=== PATIENT | male | born 1940 | race Caucasian/White ===

== ENCOUNTER → 2016-12-23 | Outpatient (REF) | payer OTHER ==
[~2016-12-23] MED LIST: ASPI81TA7 PO; CALCTAB65 PO; CARV3.12 PO; KEPP500T6 PO; LASI20TA PO; LISI-542 PO; LOSA25TA8 PO; MELA10CA PO; METO-207 PO; NORV5TAB PO; PANT40TA2 PO; POTA20TA PO; PRAV1TAB39 PO; PRAV20TA2 PO; SERT-138 PO; SERT50TA PO; SPIR25TA2 PO; TYLE500T78 PO; VITA-193 PO
[2016-12-23 20:51] LABS: ALBUMIN 3.9 GM/DL (3.2-5.2); ALBUMIN/GLOBULIN RATIO 1.03 (1.00-1.93); BILIRUBIN,TOTAL 0.4 MG/DL (0.2-1.0); CALCIUM LEVEL 8.7 MG/DL (8.8-10.2); CREATININE FOR GFR 1.55 MG/DL (0.70-1.30); GLOMERULAR FILTRATION RATE 46.4 (>42); MAGNESIUM LEVEL 2.4 MG/DL (1.8-2.4); POTASSIUM SERUM 5.1 MEQ/L (3.5-5.1); TOTAL PROTEIN 7.7 GM/DL (6.4-8.2)
== END ==
LOC: M LABDRWAD 10:16
PROVIDERS: ATTEND Internal Medicine Cardiovascular Disease
DX: I47.2 Ventricular tachycardia (principal)

== ENCOUNTER → 2017-01-25 | Outpatient (CLI) | payer OTHER ==
--- NOTE | 2017-01-25 14:43 | REP ---
CT Head without contrast HISTORY: Thrombosis COMPARISON: 12/26/2015 Areas of decreased attenuation are present in the periventricular white matter. This represents small-vessel ischemic disease. There is no intraparenchymal hemorrhage, acute infarct, mass or midline shift. The ventricular system and cortical sulci as well as subarachnoid space in the posterior fossa are dilated consistent with mild volume loss. There is no extra cerebral collection. There is no fracture. [place] holes are present in the frontal bones. The visualized sinuses are clear. IMPRESSION: 1. Small vessel ischemic disease. 2. Mild volume loss. Signed by Itz Marx MD 01/25/2017 02:35 P
== END ==
LOC: M RAD 14:09
PROVIDERS: ATTEND Neurological Surgery
DX: I82.91 Chronic embolism and thrombosis of unspecified vein (principal)

== ENCOUNTER → 2017-02-25 | Outpatient (CLI) | payer OTHER ==
[~2017-02-25] VITALS: Ht 188 cm; Wt 104.3 kg
[~2017-02-25] MED LIST changes: +AMIO200T PO; +ASPI1TAB15 PO; -ASPI81TA7 PO; +ELIQ5TAB PO; +KEPP1TAB PO; -KEPP500T6 PO; +MAGN500C2 PO; -METO-207 PO; +METO1TAB7 PO; +NITR4TASL SL; +NS 1,000 ML IV SCH; +PROPOFOL 200 MG/20 ML VIAL As Ordered ONE
--- NOTE | 2017-02-25 09:55 | ROOR ---
Patient Name: Giorgio Awad Procedure Date: 02/25/2017 8:54 AM Date of : 1940 Age: 76 Room: [facility] Gender: Male Note Status: Finalized Procedure: Colonoscopy Indications: High risk colon cancer surveillance: Personal history of colonic polyps, Last colonoscopy: April 2012 Providers: Haider LE MD Referring MD: Wyatt Sun MD Requesting Provider: Medicines: Monitored Anesthesia Care Complications: No immediate complications. Procedure: Pre-Anesthesia Assessment: - The heart rate, respiratory rate, oxygen saturations, blood pressure, adequacy of pulmonary ventilation, and response to care were monitored throughout the procedure. The Colonoscope was introduced through the anus and advanced to the cecum, identified by appendiceal orifice and ileocecal valve. The colonoscopy was performed without difficulty. The patient tolerated the procedure well. The quality of the bowel preparation was good. Findings: The perianal and digital rectal examinations were normal. Three sessile polyps were found in the hepatic flexure and ascending colon. The polyps were diminutive in size. These polyps were removed with a cold snare. Resection and retrieval were complete. The exam was otherwise without abnormality on direct and retroflexion views. Impression: - Three diminutive polyps at the hepatic flexure and in the ascending colon, removed with a cold snare. Resected and retrieved. - The examination was otherwise normal on direct and retroflexion views. - Moderate internal hemorrhoids. Recommendation: - Telephone endoscopist for pathology results in 2 weeks. - If the pathology report reveals adenomatous tissue, then repeat the colonoscopy for surveillance in 3 - 5 years. - Resume Eliquis (apixaban) at prior dose today. Haider Le MD Haider LE MD 02/25/2017 9:55:16 AM This report has been signed electronically. Number of Addenda: 0 Note Initiated On: 02/25/2017 8:54 AM Estimated Blood Loss: Estimated blood loss: none.
[2017-02-25 10:15] VITALS: BP 143/74
== END | disposition home or self-care (01) ==
LOC: M OPP 07:39
PROVIDERS: ATTEND Internal Medicine Gastroenterology
DX: Z12.11 Encounter for screening for malignant neoplasm of colon (principal); D12.2 Benign neoplasm of ascending colon; D12.3 Benign neoplasm of transverse colon; Z86.010 Personal history of colon polyps; K64.8 Other hemorrhoids; I48.91 Unspecified atrial fibrillation; Z95.5 Presence of coronary angioplasty implant and graft; R00.8 Other abnormalities of heart beat; I25.10 Atherosclerotic heart disease of native coronary artery without angina pectoris; I25.2 Old myocardial infarction; I50.9 Heart failure, unspecified; Z95.810 Presence of automatic (implantable) cardiac defibrillator; I11.0 Hypertensive heart disease with heart failure; E78.5 Hyperlipidemia, unspecified; I34.9 Nonrheumatic mitral valve disorder, unspecified; K76.0 Fatty (change of) liver, not elsewhere classified; R12 Heartburn; R56.9 Unspecified convulsions; N52.9 Male erectile dysfunction, unspecified; N18.3 Chronic kidney disease, stage 3 (moderate); N40.1 Benign prostatic hyperplasia with lower urinary tract symptoms; Z87.828 Personal history of other (healed) physical injury and trauma; Z86.79 Personal history of other diseases of the circulatory system; Z87.891 Personal history of nicotine dependence; Z88.5 Allergy status to narcotic agent; Z79.82 Long term (current) use of aspirin; Z79.899 Other long term (current) drug therapy; Z79.01 Long term (current) use of anticoagulants; Z80.8 Family history of malignant neoplasm of other organs or systems

== ENCOUNTER → 2017-05-26 | Outpatient (REF) | payer OTHER ==
[~2017-05-26] MED LIST changes: -NS 1,000 ML IV SCH; -PROPOFOL 200 MG/20 ML VIAL As Ordered ONE
[2017-05-26 20:45] LABS: MEAN CORPUSCULAR HEMOGLOBIN 30.7 pg (27.0-33.0); MEAN CORPUSCULAR HGB CONC 31.9 g/dl (32.0-36.5); MEAN CORPUSCULAR VOLUME 96.1 fl (80.0-96.0); RED CELL DISTRIBUTION WIDTH 14.5 % (11.5-14.5)
[2017-05-26 21:03] LABS: ALBUMIN 3.7 GM/DL (3.2-5.2); ALBUMIN/GLOBULIN RATIO 1.06 (1.00-1.93); ALKALINE PHOSPHATASE 80 U/L (45-117); ALT/SGPT 50 U/L (12-78); ANION GAP 8 MEQ/L (8-16); AST/SGOT 32 U/L (15-37); BILIRUBIN,TOTAL 0.3 MG/DL (0.2-1.0); BLOOD UREA NITROGEN 24 MG/DL (7-18); CALCIUM LEVEL 8.9 MG/DL (8.8-10.2); CARBON DIOXIDE LEVEL 27 MEQ/L (21-32); CHLORIDE LEVEL 103 MEQ/L (98-107); CHOLESTEROL LEVEL 185 MG/DL (<200); CREATININE FOR GFR 1.23 MG/DL (0.70-1.30); GLOMERULAR FILTRATION RATE > 60.0 (>42); GLUCOSE, FASTING 100 MG/DL (83-110); MAGNESIUM LEVEL 2.2 MG/DL (1.8-2.4); POTASSIUM SERUM 4.9 MEQ/L (3.5-5.1); SODIUM LEVEL 138 MEQ/L (136-145); TOTAL PROTEIN 7.2 GM/DL (6.4-8.2); TRIGLYCERIDES LEVEL 564 MG/DL (<150)
== END ==
LOC: M LAB REF 10:24
PROVIDERS: ATTEND Internal Medicine Cardiovascular Disease
DX: I50.42 Chronic combined systolic (congestive) and diastolic (congestive) heart failure (principal); I48.0 Paroxysmal atrial fibrillation; I25.10 Atherosclerotic heart disease of native coronary artery without angina pectoris

== ENCOUNTER 2017-05-27 09:22 | Day surgery (SDC) | payer OTHER ==
[~2017-05-27] VITALS: Ht 190.5 cm; Wt 106.6 kg
[~2017-05-27 09:22] MED LIST changes: +MIDAZOLAM INJ 2 MG/2 ML VIAL (J2250) As Ordered ONE; +fentaNYL 100 MCG/2 ML INJECTION (J3010) As Ordered ONE
[2017-05-27] MEDS ORDERED: LR 1,000 ML IV SCH (09:30)
[2017-05-27] MEDS ORDERED: PROPARACAINE 0.5% OPHTH SOL 15ML OS ONE (10:00)
[2017-05-27] MEDS ORDERED: TROPICAMIDE 1% OPHTH SOLN 2ML OS ONE (10:00)
[2017-05-27] MEDS ORDERED: PHENYLEPHRINE 2.5% OPHTH SOL 2ML OS ONE (10:00)
[2017-05-27] MEDS ORDERED: OFLOXACIN 0.3 % (OCUFLOX) OPTH SOL 5ML OS ONE (10:00)
[2017-05-27] MEDS ORDERED: BALANCED SALT IRRIGATION SOLUTION 500ML BAG (FOR OR EYE MACHINE) As Ordered ONE (10:25)
[2017-05-27] MEDS ORDERED: POVIDONE-IODINE 5% OPHTH PREP SOL 30ML As Ordered ONE (10:25)
[2017-05-27] MEDS ORDERED: ACETYLCHOLINE OPHTH SOLN 1% 2ML (MIOCHOL-E) As Ordered ONE (10:25)
[2017-05-27] MEDS ORDERED: CEFUROXIME 1MG/0.1ML INTRACAMERAL INJ As Ordered ONE ×2 (10:26→10:35)
[2017-05-27] MEDS ORDERED: LIDOCAINE 0.75%/EPINEPHRINE 0.025% IN BSS 1ML SYR INTRACAMERAL (OR ONLY) As Ordered ONE (10:26)
[2017-05-27] MEDS ORDERED: DUOVISC (0.50ML VISCOAT/0.55ML PROVISC) OPHTH KIT As Ordered ONE (10:26)
[2017-05-27] MEDS ORDERED: TETRACAINE 0.5% OPHTH SOLN 4ML As Ordered ONE (10:26)
[2017-05-27 11:50] VITALS: BP 124/73
--- NOTE | 2017-05-27 19:57 | RO ---
DATE OF PROCEDURE: 05/27/2017 PREOPERATIVE DIAGNOSIS: Visually significant nuclear sclerotic cataract left eye. POSTOPERATIVE DIAGNOSIS: Visually significant nuclear sclerotic cataract left eye. PROCEDURE: Cataract extraction with use of phacoemulsification and placement of intraocular lens, AU00T0, 16.5 Diopter, left eye. SURGEON: Evin Garsia DO SAUSAGE COOKER: ANESTHESIA: Local with monitored anesthesia care (MAC). COMPLICATIONS: None. POSTOPERATIVE CONDITION: Stable. INDICATION FOR SURGERY: Blurred vision left eye affecting patient's activities of daily living. DESCRIPTION OF PROCEDURE: The patient was seen in the preoperative area and properly identified. The correct operative eye was identified and marked. Attention was turned to that eye. The patient received topical antibiotics in the preoperative area. The patient then received topical dilating drops consisting of tropicamide and phenylephrine. The patient was then transferred to the operating room. The correct side was re-identified. The patient received topical anesthetics and antibiotics on the surface of the eye. The eye was prepped and draped in a sterile fashion. The upper and lower eyelids were isolated with Tegaderm tape, and the lids were held open with an adjustable speculum. Using a sideport blade, a paracentesis incision was made. Intraocular preservative-free lidocaine was then injected into the anterior chamber. Viscoelastic was then injected into the anterior chamber through the paracentesis. Using a 2.4 mm sharp-tipped keratome, the anterior chamber was entered via a temporal clear corneal incision. A continuous curvilinear capsulorrhexis was created with the aid of a 26-gauge cystotome and Utrata forceps. Hydrodissection was performed with balanced salt solution (BSS) on a blunt cannula until the nucleus was freely mobile. The crystalline lens was phacoemulsified and aspirated. Additional cohesive viscoelastic was placed into the capsular bag to deepen it. An AU00T0 16.5 Diopter lens was placed into the capsular bag and confirmed by visualizing the continuous curvilinear capsulorrhexis. Additional irrigation and aspiration was used to remove cortical material and remaining viscoelastic. The clear corneal incision was hydrated with BSS on a blunt cannula. The lens was well positioned. The incisions were then tested for leaks and found to be negative. The eye was then palpated for appropriate pressure and adjusted accordingly with BSS. The eyelid speculum was carefully removed. The patient tolerated the procedure well and was discharged to the recovery unit in a stable condition. MTDD
== END 2017-05-27 12:15 | disposition home or self-care (01) ==
LOC: M SDC 09:22
PROVIDERS: ATTEND Ophthalmology
DX: H25.12 Age-related nuclear cataract, left eye (principal); I48.91 Unspecified atrial fibrillation; Z98.61 Coronary angioplasty status; I25.10 Atherosclerotic heart disease of native coronary artery without angina pectoris; I25.2 Old myocardial infarction; Z79.02 Long term (current) use of antithrombotics/antiplatelets; I10 Essential (primary) hypertension; E78.5 Hyperlipidemia, unspecified; Z95.0 Presence of cardiac pacemaker; Z95.810 Presence of automatic (implantable) cardiac defibrillator; Z79.899 Other long term (current) drug therapy; K21.9 Gastro-esophageal reflux disease without esophagitis; F41.9 Anxiety disorder, unspecified; Z88.5 Allergy status to narcotic agent
CPT/HCPCS: 66984; J2250; J3010; V2632

== ENCOUNTER → 2017-07-05 | Outpatient (CLI) | payer OTHER ==
[~2017-07-05] MED LIST changes: -MIDAZOLAM INJ 2 MG/2 ML VIAL (J2250) As Ordered ONE; -fentaNYL 100 MCG/2 ML INJECTION (J3010) As Ordered ONE
--- NOTE | 2017-07-05 10:51 | REP ---
Clinical: Cough. Technique: PA and lateral. Comparison: 05/02/2016. Findings: Mediastinum and cardiac silhouette are stable. Pacemaker in satisfactory position. Lung nicholson demonstrate chronic interstitial changes without acute consolidation, effusion, or pneumothorax. Skeletal structures are intact. Impression: Chronic stable changes. No acute cardiopulmonary process. Signed by Armen Garcia MD 07/05/2017 10:42 A
== END ==
LOC: M ADAMS 10:12
PROVIDERS: ATTEND Family Medicine
DX: R05 Cough (principal); J98.4 Other disorders of lung
CPT/HCPCS: 71020; G0463

== ENCOUNTER → 2017-07-13 | Outpatient (REF) | payer OTHER ==
[2017-07-14 19:51] LABS: MEAN CORPUSCULAR HGB CONC 31.5 g/dl (32.0-36.5); MEAN CORPUSCULAR VOLUME 95.3 fl (80.0-96.0); PLATELET COUNT, AUTOMATED 265 10^3/uL (150-450); RED CELL DISTRIBUTION WIDTH 14.4 % (11.5-14.5); WHITE BLOOD COUNT 6.5 10^3/uL (4.0-10.0)
[2017-07-14 20:18] LABS: ALBUMIN 3.8 GM/DL (3.2-5.2); BILIRUBIN,TOTAL 0.7 MG/DL (0.2-1.0); CALCIUM LEVEL 8.8 MG/DL (8.8-10.2); CREATININE FOR GFR 1.46 MG/DL (0.70-1.30); GLOMERULAR FILTRATION RATE 49.6 (>42); TOTAL PROTEIN 7.6 GM/DL (6.4-8.2)
== END ==
LOC: M SFHCADAM 09:49
PROVIDERS: ATTEND Family Medicine
DX: N18.3 Chronic kidney disease, stage 3 (moderate) (principal); I25.10 Atherosclerotic heart disease of native coronary artery without angina pectoris; E78.5 Hyperlipidemia, unspecified; E74.9 Disorder of carbohydrate metabolism, unspecified; I11.9 Hypertensive heart disease without heart failure; I48.0 Paroxysmal atrial fibrillation; Z79.899 Other long term (current) drug therapy

== ENCOUNTER → 2017-07-21 | Outpatient (CLI) | payer OTHER ==
--- NOTE | 2017-07-21 09:08 | REP ---
NONCONTRAST CHEST CT: CLINICAL: Chronic cough. COMPARISON: 04/13/2016. FINDINGS: The bilateral lung nicholson are well aerated and essentially clear. Minimal chronic appearing interstitial changes are appreciated along with few small pneumatoceles measuring up to approximately 1.5 cm. No acute consolidation, significant nodule or mass lesion. Tracheobronchial tree is patent. No pleural effusion or pneumothorax. Mediastinum demonstrates atherosclerotic changes of the thoracic aorta and coronary artery without aortic aneurysm. No cardiomegaly or pericardial effusion is appreciated. Dual lead pacemaker identified in right atrium and ventricle. No adenopathy. Surrounding musculoskeletal structures demonstrate age related changes without focal osseous abnormality. Limited upper abdomen demonstrates normal bilateral adrenal glands and evidence for prior cholecystectomy. IMPRESSION: Minimal scattered chronic changes. No acute or significant mediastinal or pleuroparenchymal process. Signed by Armen Garcia MD 07/23/2017 08:43 A
== END ==
LOC: M RAD 06:59
PROVIDERS: ATTEND Family Medicine
DX: R05 Cough (principal)

== ENCOUNTER → 2017-08-07 | Outpatient (CLI) | payer OTHER ==
--- NOTE | 2017-08-07 13:59 | REP ---
Clinical: History of subdural hematoma. Comparison: 01/25/2017. Findings: Current examination demonstrates a small subdural hematoma along the left lateral convexity measuring 6.7 mm maximal width (images 14 - 22). Evidence for prior bilateral svetlana holes. Underlying atrophy and microvascular ischemic changes are appreciated without evidence for further acute intracranial hemorrhage or mass/mass effect. The ventricles are symmetric. Mild to moderate mucosal thickening to the sinuses suggests chronic sinus disease. Impression: Small subdural hematoma along the left lateral convexity. Signed by Armen Garcia MD 08/07/2017 01:51 P
== END ==
LOC: M RAD 09:51
DX: I62.00 Nontraumatic subdural hemorrhage, unspecified (principal); R29.6 Repeated falls

== ENCOUNTER → 2018-01-04 | Outpatient (CLI) | payer OTHER | LOC: M RAD 10:43 | DX: S06.5X0D Traumatic subdural hemorrhage without loss of consciousness, subsequent encounter (principal); I73.9 Peripheral vascular disease, unspecified; I47.2 Ventricular tachycardia | CPT/HCPCS: 71046 ==

== ENCOUNTER → 2018-01-04 | Outpatient (CLI) | payer OTHER | LOC: M RAD 11:05 | DX: I47.2 Ventricular tachycardia (principal) ==

== ENCOUNTER → 2018-02-11 | Outpatient (REF) | payer OTHER ==
[2018-02-11 12:42] LABS: HEMATOCRIT 45.1 % (42.0-52.0); HEMOGLOBIN 14.5 g/dl (13.5-17.5); MEAN CORPUSCULAR HEMOGLOBIN 29.8 pg (27.0-33.0); MEAN CORPUSCULAR HGB CONC 32.2 g/dl (32.0-36.5); MEAN CORPUSCULAR VOLUME 92.6 fl (80.0-96.0); PLATELET COUNT, AUTOMATED 268 10^3/uL (150-450); RED BLOOD COUNT 4.87 10^6/uL (4.30-6.10); RED CELL DISTRIBUTION WIDTH 14.3 % (11.5-14.5)
[2018-02-11 12:59] LABS: ALBUMIN 3.6 GM/DL (3.2-5.2); ALBUMIN/GLOBULIN RATIO 0.97 (1.00-1.93); ALKALINE PHOSPHATASE 83 U/L (45-117); ALT/SGPT 29 U/L (12-78); ANION GAP 10 MEQ/L (8-16); AST/SGOT 18 U/L (7-37); BILIRUBIN,TOTAL 0.5 MG/DL (0.2-1.0); BLOOD UREA NITROGEN 21 MG/DL (7-18); CALCIUM LEVEL 8.8 MG/DL (8.8-10.2); CARBON DIOXIDE LEVEL 23 MEQ/L (21-32); CHLORIDE LEVEL 110 MEQ/L (98-107); CHOLESTEROL LEVEL 188 MG/DL (<200); CHOLESTEROL RISK RATIO 8.545 (<5); CREATININE FOR GFR 1.53 MG/DL (0.70-1.30); GLUCOSE, FASTING 111 MG/DL (70-100); HDL CHOLESTEROL 22 MG/DL (>40); LDL CHOLESTEROL 95.4 MG/DL (<100); NON-HDL-C 166 MG/DL; POTASSIUM SERUM 4.5 MEQ/L (3.5-5.1); SODIUM LEVEL 143 MEQ/L (136-145); TOTAL PROTEIN 7.3 GM/DL (6.4-8.2); TRIGLYCERIDES LEVEL 353 MG/DL (<150)
[2018-02-11 13:00] LABS: TOTAL 25(OH) VITAMIN D 22.5 NG/ML (30.0-100.0)
[2018-02-11 13:40] LABS: ESTIMATED AVERAGE GLUCOSE 123 MG/DL (60-110); HEMOGLOBIN A1c 5.9 %
== END ==
LOC: M SFHCADAM 10:00
DX: I50.20 Unspecified systolic (congestive) heart failure (principal); I25.10 Atherosclerotic heart disease of native coronary artery without angina pectoris; I13.0 Hypertensive heart and chronic kidney disease with heart failure and stage 1 through stage 4 chronic kidney disease, or unspecified chronic kidney disease; E74.9 Disorder of carbohydrate metabolism, unspecified; N18.3 Chronic kidney disease, stage 3 (moderate)
CPT/HCPCS: 83735

== ENCOUNTER → 2018-02-27 | Outpatient (REF) | payer OTHER ==
[2018-03-01 14:48] LABS: FATS NEUTRAL Normal (.); FATS TOTAL Normal (.)
== END ==
LOC: M LAB REF 12:02
DX: R19.7 Diarrhea, unspecified (principal)
CPT/HCPCS: 82705

== ENCOUNTER → 2018-05-24 | Outpatient (CLI) | payer OTHER | LOC: M RAD 06:51 | DX: R26.81 Unsteadiness on feet (principal); R51 Headache | CPT/HCPCS: 70450 ==

== ENCOUNTER → 2018-06-20 | Outpatient (CLI) | payer OTHER | LOC: M RAD 14:52 | DX: M51.26 Other intervertebral disc displacement, lumbar region (principal); M48.061 Spinal stenosis, lumbar region without neurogenic claudication; R53.1 Weakness | CPT/HCPCS: 72131 ==

== ENCOUNTER → 2018-07-20 | Outpatient (REF) | payer OTHER ==
[2018-07-20 15:40] LABS: BASO # 0.1 10^3/uL (0.0-0.2); BASO % 0.7 % (0.0-1.0); EOS # 0.2 10^3/uL (0.0-0.50); EOS % 2.4 % (0.0-3.0); HEMATOCRIT 45.2 % (42.0-52.0); HEMOGLOBIN 14.6 g/dl (13.5-17.5); IMMATURE GRANULOCYTE # 0.1 10^3/uL (0-0); IMMATURE GRANULOCYTE % 0.9 % (0-3.0); LYMPH # 1.6 10^3/uL (1.5-4.5); LYMPH % 18.9 % (24.0-44.0); MEAN CORPUSCULAR HEMOGLOBIN 30.6 pg (27.0-33.0); MEAN CORPUSCULAR HGB CONC 32.3 g/dl (32.0-36.5); MEAN CORPUSCULAR VOLUME 94.8 fl (80.0-96.0); MONO # 0.6 10^3/uL (0.0-0.8); MONO % 6.8 % (0.0-5.0); NEUTROPHILS # 5.8 10^3/uL (1.8-7.7); NEUTROPHILS % 70.3 % (36.0-66.0); PLATELET COUNT, AUTOMATED 254 10^3/uL (150-450); RED BLOOD COUNT 4.77 10^6/uL (4.30-6.10); RED CELL DISTRIBUTION WIDTH 14.6 % (11.5-14.5); WHITE BLOOD COUNT 8.2 10^3/uL (4.0-10.0)
[2018-07-20 15:42] LABS: APPEARANCE, URINE CLEAR (CLEAR); BACTERIA, URINE AUTO 1+ (NEGATIVE); BILIRUBIN, URINE AUTO NEGATIVE (NEGATIVE); BLOOD, URINE BLOOD NEGATIVE (NEGATIVE); COLOR, URINE YELLOW (YELLOW); GLUCOSE, URINE (UA) AUTO NEGATIVE (NEGATIVE); KETONE, URINE AUTO NEGATIVE (NEGATIVE); LEUKOCYTE ESTERASE, URINE AUTO 2+ (NEGATIVE); MUCUS, URINE SMALL (NEGATIVE); NITRITE, URINE AUTO NEGATIVE (NEGATIVE); PROTEIN, URINE AUTO NEGATIVE (NEGATIVE); RBC, URINE AUTO 0 /HPF (0-3); SPECIFIC GRAVITY URINE AUTO 1.017 (1.002-1.035); SQUAMOUS EPITHELIAL CELL UR AU 0 /HPF (0-6); UROBILINOGEN, URINE AUTO 0.2 mg/dL (0.0-2.0); WBC, URINE AUTO 24 /HPF (0-3)
[2018-07-20 15:56] LABS: ALBUMIN 3.6 GM/DL (3.2-5.2); ALBUMIN/GLOBULIN RATIO 0.95 (1.00-1.93); ALKALINE PHOSPHATASE 102 U/L (45-117); ALT/SGPT 33 U/L (12-78); ANION GAP 9 MEQ/L (8-16); AST/SGOT 20 U/L (7-37); BILIRUBIN,TOTAL 0.4 MG/DL (0.2-1.0); BLOOD UREA NITROGEN 21 MG/DL (7-18); CALCIUM LEVEL 8.6 MG/DL (8.8-10.2); CARBON DIOXIDE LEVEL 26 MEQ/L (21-32); CHLORIDE LEVEL 105 MEQ/L (98-107); CREATININE FOR GFR 1.32 MG/DL (0.70-1.30); GLOMERULAR FILTRATION RATE 55.6 (>35); GLUCOSE, FASTING 121 MG/DL (70-100); MAGNESIUM LEVEL 2.1 MG/DL (1.8-2.4); POTASSIUM SERUM 4.3 MEQ/L (3.5-5.1); SODIUM LEVEL 140 MEQ/L (136-145); TOTAL PROTEIN 7.4 GM/DL (6.4-8.2)
== END ==
LOC: M SHH 13:58
DX: I47.2 Ventricular tachycardia (principal); I49.5 Sick sinus syndrome
CPT/HCPCS: 83735

== ENCOUNTER → 2018-10-14 | Outpatient (REF) | payer MEDICARE ==
[~2018-10-14] MED LIST changes: +KLOR20TA42 PO; -LASI20TA PO; +LASI20TA3 PO; +LOSA25TA14 PO; -LOSA25TA8 PO; -PANT40TA2 PO; +PANT40TA3 PO; -POTA20TA PO; +SPIR-10 PO; -SPIR25TA2 PO
[2018-10-14 19:45] LABS: ALBUMIN 3.9 GM/DL (3.2-5.2); CALCIUM LEVEL 8.7 MG/DL (8.8-10.2); CREATININE FOR GFR 1.5 MG/DL (0.70-1.30); GLOMERULAR FILTRATION RATE 47.9 (>35); MAGNESIUM LEVEL 2.1 MG/DL (1.8-2.4); PHOSPHORUS LEVEL 2.8 MG/DL (2.5-4.9); POTASSIUM SERUM 4.5 MEQ/L (3.5-5.1); THYROID STIMULATING HORMONE 3.7 uIU/ML (0.358-3.740)
== END ==
LOC: M LABDRWAD 18:56
PROVIDERS: ATTEND Family Medicine
DX: I47.2 Ventricular tachycardia (principal); T46.2X5A Adverse effect of other antidysrhythmic drugs, initial encounter

== ENCOUNTER → 2018-10-17 | Outpatient (REF) | payer MEDICARE | LOC: M LABDRWAD 19:14 | PROVIDERS: ATTEND Internal Medicine Cardiovascular Disease | DX: I50.43 Acute on chronic combined systolic (congestive) and diastolic (congestive) heart failure (principal) ==

== ENCOUNTER → 2018-10-19 | Outpatient (CLI) | payer MEDICARE ==
--- NOTE | 2018-10-19 16:10 | REP ---
CT brain without contrast: History: Traumatic subdural hematoma. Comparison study May 24, 2018. January 04, 2018 prior study is also reviewed. CT findings: Preliminary digital funeral home attendant radiograph and bone window settings demonstrate bilateral frontal bone svetlana hole defects. Bony calvarium is otherwise intact. There are mild mucosal changes in the ethmoid and sphenoid sinuses bilaterally. Vascular calcifications noted in the distal vertebral and distal carotid arteries as before. There is diffuse moderate cerebral atrophy. There is no evidence of subdural hematoma or other intracranial hemorrhage. No subdural hygroma is seen. There is no evidence of infarct, mass, midline shift. Mild small vessel changes are noted. Impression: Diffuse atrophy, vascular calcification, and prior bilateral frontal bone svetlana holes. No acute intracranial lesion. Electronically Signed by Prabhjot Mittal MD 10/19/2018 05:15 P
--- NOTE | 2018-10-19 16:18 | REP ---
CT lumbar spine without contrast: History: Traumatic subdural hematoma, low back pain. Comparison CT lumbar spine study June 20, 2018. CT findings: There is no evidence of bony destructive lesion or interval collapse. Degenerative spondylosis changes are again noted. Advanced vascular calcification is noted. No other significant extra vertebral abnormality is noted. At L5-S1, there is moderate osteoarthritic facet hypertrophy and sclerosis bilaterally. The disc is mildly narrowed. No disc herniation is seen. At L4-5, there is advanced facet osteoarthritis bilaterally. Degenerative disc changes are noted. There is a 2 mm L4-5 spondylolisthesis, grade 1, unchanged from prior study. Diffuse disc bulging is present. There is moderate central canal stenosis at L4-5 due to developmentally short pedicles, disc bulging, facet and ligamentum flavum hypertrophy, and the degenerative spondylolisthesis. This is unchanged. The thecal sac is quite compressed. At L3-L4, there is also moderate central canal stenosis but less prominent than at L4-5. There is diffuse disc bulging. Mild facet and ligamentum flavum hypertrophy is present. Developmentally short pedicles. At L2-3, there is mild central canal stenosis again noted due to disc bulging, ligamentum flavum hypertrophy and minimal facet hypertrophy. These changes are stable from the prior study. At L1-2, there is minimal disc bulging. Impression: Degenerative spondylosis changes. The dominant abnormality is L4-5 where there is moderate to severe central canal stenosis. The findings are unchanged from the June 20, 2018 prior study. Electronically Signed by Prabhjot Mittal MD 10/19/2018 05:15 P
== END ==
LOC: M RAD 15:14
PROVIDERS: ATTEND Physician Assistant Medical
DX: M51.26 Other intervertebral disc displacement, lumbar region (principal); M47.26 Other spondylosis with radiculopathy, lumbar region; R29.6 Repeated falls; G31.84 Mild cognitive impairment of uncertain or unknown etiology; M51.36 Other intervertebral disc degeneration, lumbar region; M48.061 Spinal stenosis, lumbar region without neurogenic claudication; I67.2 Cerebral atherosclerosis; I65.23 Occlusion and stenosis of bilateral carotid arteries

== ENCOUNTER → 2018-10-31 | Outpatient (REF) | payer MEDICARE ==
[2018-10-31 14:16] LABS: ALBUMIN 3.8 GM/DL (3.2-5.2); CALCIUM LEVEL 9.3 MG/DL (8.8-10.2); CREATININE FOR GFR 1.48 MG/DL (0.70-1.30); GLOMERULAR FILTRATION RATE 48.7 (>35); MAGNESIUM LEVEL 2.3 MG/DL (1.8-2.4); PHOSPHORUS LEVEL 3.2 MG/DL (2.5-4.9); POTASSIUM SERUM 4.7 MEQ/L (3.5-5.1)
== END ==
LOC: M LABDRWAD 13:24
PROVIDERS: ATTEND Internal Medicine Cardiovascular Disease
DX: I50.43 Acute on chronic combined systolic (congestive) and diastolic (congestive) heart failure (principal)

== ENCOUNTER → 2019-01-30 | Outpatient (CLI) | payer MEDICARE ==
[~2019-01-30] MED LIST changes: +SERT-141 PO; -SERT50TA PO
[2019-01-30 13:20] LABS: BASO # 0.1 10^3/uL (0.0-0.2); BASO % 0.7 % (0.0-1.0); EOS # 0.3 10^3/uL (0.0-0.50); EOS % 3.7 % (0.0-3.0); HEMATOCRIT 47.9 % (42.0-52.0); HEMOGLOBIN 15.3 g/dl (13.5-17.5); LYMPH # 1.8 10^3/uL (1.5-4.5); LYMPH % 20.7 % (24.0-44.0); MEAN CORPUSCULAR HEMOGLOBIN 29.9 pg (27.0-33.0); MEAN CORPUSCULAR HGB CONC 31.9 g/dl (32.0-36.5); MEAN CORPUSCULAR VOLUME 93.6 fl (80.0-96.0); MONO # 0.4 10^3/uL (0.0-0.8); MONO % 5.1 % (0.0-5.0); NEUTROPHILS % 69.1 % (36.0-66.0); PLATELET COUNT, AUTOMATED 310 10^3/uL (150-450); RED BLOOD COUNT 5.12 10^6/uL (4.30-6.10); WHITE BLOOD COUNT 8.7 10^3/uL (4.0-10.0)
[2019-01-30 13:36] LABS: ALBUMIN 3.8 GM/DL (3.2-5.2); BILIRUBIN,TOTAL 0.4 MG/DL (0.2-1.0); CALCIUM LEVEL 9.2 MG/DL (8.8-10.2); CREATININE FOR GFR 1.58 MG/DL (0.70-1.30); GLOMERULAR FILTRATION RATE 45.1 (>35); POTASSIUM SERUM 4.5 MEQ/L (3.5-5.1); THYROID STIMULATING HORMONE 5.48 uIU/ML (0.358-3.740); TOTAL PROTEIN 7.7 GM/DL (6.4-8.2)
== END ==
LOC: M ADAMS 10:00
PROVIDERS: ATTEND Internal Medicine Cardiovascular Disease
DX: I48.0 Paroxysmal atrial fibrillation (principal); I34.0 Nonrheumatic mitral (valve) insufficiency; I50.42 Chronic combined systolic (congestive) and diastolic (congestive) heart failure; I11.0 Hypertensive heart disease with heart failure; I25.10 Atherosclerotic heart disease of native coronary artery without angina pectoris

== ENCOUNTER → 2019-02-03 | Outpatient (CLI) | payer MEDICARE ==
--- NOTE | 2019-02-03 08:14 | REP ---
BRAIN CT WITHOUT CONTRAST: HISTORY: Mild cognitive impairment. Comparison head CT study October 19, 2018 and May 24, 2018. CT FINDINGS: The preliminary digital contract lead radiograph and axial bone window images demonstrate that the patient is status post bilateral frontal svetlana hole placement. No other calvarial defect is seen. There is mucosal thickening mild in degree affecting the ethmoid and frontal sinuses. Vascular calcifications again noted in the distal vertebral and distal carotid arteries bilaterally. On soft tissue window settings, there is diffuse moderate cerebral atrophy volume loss. This is unchanged. Small vessel changes are noted in the periventricular white matter. There is a small focus of old encephalomalacia in the left occipital lobe consistent with an old infarct. This is unchanged from October 19, 2018 although appears to be new from June 04, 2018. Today's study shows no acute infarct. There is no evidence of intracranial hemorrhage. No extra-axial fluid collection is seen. No mass or midline shift is observed. IMPRESSION: Diffuse atrophy, small vessel changes, vascular calcification. 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 No acute intracranial abnormality. Prior bilateral frontal bone svetlana holes. Minimal mucosal thickening in the ethmoid and frontal sinuses. Electronically Signed by Prabhjot Mittal MD 02/03/2019 08:17 A
--- NOTE | 2019-02-03 08:27 | REP ---
CT LUMBAR SPINE WITHOUT CONTRAST: HISTORY: Low back pain. Comparison lumbar spine CT study October 19, 2018. FINDINGS: There is minimal old wedging of the L1 vertebral body with partial collapse of the superior endplate unchanged from comparison studies. Lumbar vertebral body heights are otherwise preserved. Degenerative spondylosis changes are again noted. There is a 2-3 mm L4-5 degenerative spondylolisthesis. Alignment is otherwise normal. This is unchanged. There is no evidence of spondylolysis. Osteoarthritic facet changes are again noted at L5-S1 bilaterally. No neural foraminal narrowing is seen. At L4-5, today's study again demonstrates moderate to severe central canal stenosis due to diffuse disc bulging, developmentally short pedicles, ligamentum flavum and facet hypertrophy. This finding is unchanged from the November 02, 2018 study. There is no bony neural foraminal narrowing. At L3-4, degenerative disc narrowing is seen with small vacuum phenomenon. There is diffuse disc bulging. There is moderate central canal stenosis at L3-4 as well. There is mild ligamentum flavum and facet hypertrophy. These findings are stable. L2-3 , mild central canal stenosis is again noted due to diffuse disc bulging. There is slight ligamentum flavum hypertrophy. No change from comparison study. L1-2, there is mild diffuse disc bulging. No other abnormality. IMPRESSION: Degenerative spondylosis changes. Moderate to severe central canal stenosis at L4-5 with stable grade 1 spondylolisthesis. Mild to moderate central canal stenosis at L3-4 and L2-3. Findings unchanged from October 16, 2018 prior study. Electronically Signed by Prabhjot Mittal MD 02/03/2019 08:41 A
== END ==
LOC: M RAD 07:12
PROVIDERS: ATTEND Physician Assistant Medical
DX: G31.84 Mild cognitive impairment of uncertain or unknown etiology (principal); R51 Headache; S06.5X0D Traumatic subdural hemorrhage without loss of consciousness, subsequent encounter; X58.XXXD Exposure to other specified factors, subsequent encounter; M54.5 Low back pain; M48.062 Spinal stenosis, lumbar region with neurogenic claudication; M47.26 Other spondylosis with radiculopathy, lumbar region

== ENCOUNTER → 2019-03-13 | Outpatient (CLI) | payer MEDICARE ==
[2019-03-13 12:59] LABS: COLLAGEN EPINEPHRINE 115 SECONDS (74-162)
== END ==
LOC: M LAB 11:26
PROVIDERS: ATTEND Ophthalmology
DX: H02.122 Mechanical ectropion of right lower eyelid (principal); H10.45 Other chronic allergic conjunctivitis

== ENCOUNTER → 2019-03-23 | Outpatient (REF) | payer MEDICARE ==
[~2019-03-23] MED LIST changes: +CYAN500T9 PO; -VITA-193 PO
[2019-03-23 20:22] LABS: FREE T4 0.98 NG/DL (0.76-1.46); THYROID STIMULATING HORMONE 3.31 uIU/ML (0.358-3.740)
== END ==
LOC: M SFHCADAM 11:26
PROVIDERS: ATTEND Family Medicine
DX: E03.9 Hypothyroidism, unspecified (principal)

== ENCOUNTER 2019-05-15 10:17 | Inpatient (IN) | payer MEDICARE ==
[~2019-05-15] VITALS: Ht 190.5 cm; Wt 112.3 kg
[2019-05-15] MEDS ORDERED: LEVO25TA5 PO (10:40)
[2019-05-15] MEDS ORDERED: ROSU10TA6 PO (10:40)
[2019-05-15] MEDS ORDERED: ENTR1TAB PO (10:40)
[2019-05-15 11:27] LABS: BASO # 0.1 10^3/uL (0.0-0.2); BASO % 0.3 % (0.0-1.0); HEMATOCRIT 55.2 % (42.0-52.0); HEMOGLOBIN 18.3 g/dl (13.5-17.5); LYMPH # 1.5 10^3/uL (1.5-5.0); MEAN CORPUSCULAR HEMOGLOBIN 30.8 pg (27.0-33.0); MEAN CORPUSCULAR HGB CONC 33.2 g/dl (32.0-36.5); MEAN CORPUSCULAR VOLUME 92.8 fl (80.0-96.0); MONO # 0.9 10^3/uL (0.0-0.8); MONO % 4.9 % (0.0-5.0); NEUTROPHILS # 15.6 10^3/uL (1.5-8.5); NEUTROPHILS % 86.3 % (36.0-66.0); PLATELET COUNT, AUTOMATED 328 10^3/uL (150-450); RED BLOOD COUNT 5.95 10^6/uL (4.30-6.10); WHITE BLOOD COUNT 18.1 10^3/uL (4.0-10.0)
[2019-05-15] MEDS ORDERED: ACET500T15 PO (11:28)
[2019-05-15] MEDS ORDERED: POTA10TA14 PO (11:29)
[2019-05-15] MEDS ORDERED: D31000CA4 PO (11:30)
[2019-05-15] MEDS ORDERED: VITA-144 PO (11:33)
--- NOTE | 2019-05-15 11:54 | REP ---
CT brain without contrast: History: Altered mental status. Comparison CT study February 03, 2019. CT findings: Digital department of natural [employer] officer views and bone window settings demonstrate bilateral frontal bone svetlana holes as on prior study. No other bony calvarial defect is seen. Vascular calcification is again noted in the distal vertebral and carotid arteries. There is minimal mucosal thickening in the frontal and ethmoid sinuses and in the right sphenoid sinus. There is moderate generalized atrophy. There is no evidence of intracranial hemorrhage. No extra-axial fluid collection, mass or midline shift is seen. No evidence of acute cortical infarction seen. There is a small old left occipital lobe cortical infarction again seen unchanged. Impression: Moderate generalized atrophy and vascular calcification. Prior bilateral frontal bone svetlana holes. No acute intracranial abnormality. Electronically Signed by Prabhjot Mittal MD 05/15/2019 12:08 P
[2019-05-15 11:58] LABS: ALBUMIN 3.6 GM/DL (3.2-5.2); BILIRUBIN,DIRECT 0.3 MG/DL (0.0-0.2); BILIRUBIN,TOTAL 1.1 MG/DL (0.2-1.0); CK-MB VALUE MASS 4.7 NG/ML (<3.6); MB/CK RELATIVE INDEX 2.25 (< OR =4); TOTAL PROTEIN 7.6 GM/DL (6.4-8.2); TROPONIN I 0.08 NG/ML (< 0.10)
--- NOTE | 2019-05-15 12:06 | REP ---
Portable chest x-ray: Two views. History: Shortness of breath. Comparison chest x-ray: Jan 04 2018. Findings: EKG monitoring electrodes overlie the chest. Heart is not enlarged. A dual lead pacemaker is seen in the right heart via the left side as before. The lungs are symmetrically aerated and clear. Pulmonary vasculature is not increased. No pleural effusion is seen. Impression: Pacemaker in place. Otherwise no acute disease. Electronically Signed by Prabhjot Mittal MD 05/15/2019 11:58 A
[2019-05-15] MEDS ORDERED: NS 1,000 ML IV SCH (12:30)
[2019-05-15] MEDS ORDERED: cefTRIAXone SOD 2 GM in D5W MINI-BAG PLUS 50 ML IV ONE (12:30)
[2019-05-15 12:38] LABS: INR 1.26; PROTHROMBIN TIME 15.5 SECONDS (11.8-14.0)
[2019-05-15 12:39] LABS: PARTIAL THROMBOPLASTIN TIME 38.1 SECONDS (25.0-38.4)
[2019-05-15] MEDS ORDERED: LIDOCAINE 2% 5ML JELLY UROJET TOP ONE (12:45)
[2019-05-15] MEDS ORDERED: IPRATROPIUM 0.5MG/ALBUTEROL 2.5MG INH SOL UD 3ML (DUONEB)(J7620) NEB PRN (16:00)
--- NOTE | 2019-05-15 16:20 | HPEPDOC ---
General Date of Admission 05/15/19 Date of Service: May 15, 2019 Primary Care Physician: Wyatt Sun MD Attending Physician: SIVA KIRK MD Chief Complaint The patient is a 78-year-old male admitted with a reason for visit of Miguel Arellano. Source: Patient, Family, RN/MD Exam Limitations: No limitations Timing/Duration: Day(s) Severity: Moderate (liters) Associated Symptoms: Shortness of breath, Other (. Altered mental status) History of Present Illness 78 years old white male with past medical history of coronary artery disease, congestive heart failure, sick sinus syndrome, status post AICD and permanent pacemaker placement secondary to emergency room by EMS and as per his . I he is altered mental status, not eating or drinking and not sleeping. Also complaining of shortness of breath and generalized tiredness and fatigue getting worse since last 3 days. No nausea, vomiting or diarrhea. When I asked patient, he denies any complaints at the present time, but he is awake, alert, but not appropriate and not oriented to time and place Home Medications Scheduled Acetaminophen (Acetaminophen) 500 Mg Tablet, 500 MG PO DAILY, (Reported) Amiodarone HCl (Amiodarone HCl) 200 Mg Tab, 200 MG PO DAILY, (Reported) Apixaban (Eliquis) 5 Mg Tab, 5 MG PO BID, (Reported) Aspirin (Aspirin EC) 81 Mg Tab, 81 MG PO DAILY, (Reported) Cholecalciferol (Vitamin D3) (Vitamin D3) 1,000 Unit Tablet, 1,000 UNIT PO DAILY, (Reported) Cyanocobalamin (Vitamin B-12) (Vitamin B-12) 500 Mcg Tab, 1,000 MCG PO DAILY, (Reported) Levothyroxine Sodium (Levothyroxine Sodium) 25 Mcg Tablet, 25 MCG PO DAILY, (Reported) Melatonin (Melatonin) 10 Mg Cap, 10 MG PO QHS, (Reported) Metoprolol Succinate (Metoprolol Succinate) 50 Mg Tab, 50 MG PO DAILY, (Reported) Pantoprazole Sodium (Pantoprazole Sodium) 40 Mg Tab, 40 MG PO DAILY, (Reported) Potassium Chloride (Potassium Chloride) 10 Meq Tablet.er, 10 MEQ PO BID, (Reported) Rosuvastatin Calcium (Rosuvastatin Calcium) 10 Mg Tablet, 10 MG PO QHS, (Reported) Sacubitril/Valsartan (Entresto 24 mg-26 mg Tablet) 1 Each Tablet, 24 MG PO QHS, (Reported) Sertraline HCl (Sertraline HCl) 100 Mg Tab, 150 MG PO DAILY, (Reported) Allergies Coded Allergies: morphine (Verified Allergy, Severe, highly agiatated, 05/15/19) Past Medical History Medical History CAD, congestive heart failure, sick sinus syndrome status post pacemaker and AICD, hyperlipidemia, depression, BPH, lumbar radiculopathy status post laminectomy, GERD, erectile dysfunction, osteoarthritis, hypertension, asthma, history of subdural hemorrhage. 2015 Surgical History Right eye extraction, tonsillectomy and adenectomy, appendectomy, bone graft from right hip. The right humerus, ERCP with sphincterectomy. Laparoscopic cholecystectomy. She ablation, AICD pacemaker 2014 cardiac cath 2014 L3-L4 laminectomy Family History Significant Family History: Other (. Father of heart failure at age of 74. Mother had a history of rheumatoid arthritis) Social History * Smoker: former Smoker Alcohol: Denies Drugs: denies A-FIB/CHADSVASC A-FIB History Current/History of A-Fib/PAF?: No Review of Systems Constitutional: Reports: Fatigue Eyes: Denies: Pain, Vision change, Conjunctivae inflammation, Eyelid inflammation, Redness, Other ENT: Denies: Head Aches, Ear Pain, Dysphagia, Sinus Congestion, Post Nasal Drip, Sore Throat, Epistaxis, Other Symptoms Skin: Denies: Rash, Lesions, Jaundice, Bruising, Itching, Dry, Breakdown, Nail Changes, Other Pulmonary: Reports: Dyspnea; Denies: Cough, Pleuritic Chest Pain, Other Symptoms Cardiovascular: Denies: Chest Pain, Palpitations, Orthopnea, Paroxysmal Noc. Dyspnea, Edema, Lt Headedness, Other Symptoms Gastrointestinal: Denies: Nausea, Vomiting, Abdominal Pain, Diarrhea, Constipation, Melena, Hematochezia, Other Symptoms Hematologic: Denies: Bruising, Bleeding Excessively, Petecchia, Purpura, Enlarged Lymph Nodes, Other Hematologic Endocrine: Denies: Polydipsia, Polyphagia, Polyuria, Heat Intolerance, Cold Intolerance, Other Endocrine Sx Musculoskeletal: Denies: Neck Pain, Back Pain, Shoulder Pain, Arm Pain, Hand Pain, Leg Pain, Foot Pain, Joint Pain, Muscle Pain, Spasms, Other Symptoms Neurological: Reports: Confusion Psych: Denies: Mood Normal, Anxiety, Depression, Memory Issues, Thoughts of Self Harm, Anger, Thoughts of Harming Other, Other Psych Physical Examination General Exam: Positive: Alert, Cooperative, Other (, oriented 1) Eye Exam: Positive: PERRLA, Conjunctiva & lids normal ENT Exam: Positive: Mucous membr. moist/pink Neck Exam: Positive: Supple Chest Exam: Positive: Clear to auscultation, Normal air movement Heart Exam: Positive: Rate Normal, Normal S1, Normal S2 Telemetry: Positive: Tachycardia Abdomen Exam: Positive: Normal bowel sounds, Soft Extremity Exam: Positive: Normal pulses Skin Exam: Positive: Nl turgor and temperature Neuro Exam: Positive: Strength at 5/5 X4 ext, Sensation Intact Vital Signs Vital Signs Date Time Temp Pulse Resp B/P (MAP) Pulse Ox O2 Delivery O2 Flow Rate FiO2 05/15/19 12:02 99 96 05/15/19 12:00 132/67 (88) 05/15/19 10:30 Room Air 05/15/19 10:18 97.1 24 Laboratory Data Labs 24H Laboratory Tests 2 05/15/19 11:11: Immature Granulocyte % (Auto) 0.5, White Blood Count 18.1H, Red Blood Count 5.95, Hemoglobin 18.3H, Hematocrit 55.2H, Mean Corpuscular Volume 92.8, Mean Corpuscular Hemoglobin 30.8, Mean Corpuscular Hemoglobin Concent 33.2, Red Cell Distribution Width 14.6H, Platelet Count 328, Neutrophils (%) (Auto) 86.3H, Lymphocytes (%) (Auto) 8.0L, Monocytes (%) (Auto) 4.9, Eosinophils (%) (Auto) 0.0, Basophils (%) (Auto) 0.3, Neutrophils # (Auto) 15.6H, Lymphocytes # (Auto) 1.5, Monocytes # (Auto) 0.9H, Eosinophils # (Auto) 0.0, Basophils # (Auto) 0.1, Nucleated Red Blood Cells % (auto) 0.0, Aspartate Amino Transf (AST/SGOT) 40H, Alanine Aminotransferase (ALT/SGPT) 53, Alkaline Phosphatase 99, Total Bilirubin 1.1H, Direct Bilirubin 0.3H, Ammonia 18, Total Creatine Kinase 209, Creatine Kinase MB 4.7H, Creatine Kinase MB Relative Index 2.25, Troponin I 0.08, Total Protein 7.6, Albumin 3.6, Albumin/Globulin Ratio 0.90L, Amylase Level 16L, Lipase 159 05/15/19 11:19: POC Glucose (Misc Panel) 149H, POC Sodium (Misc Panel) 141, POC Potassium (Misc Panel) 3.8, POC Chloride (Misc Panel) 106, POC Total CO2 (Misc Panel) 22.0L, POC Blood Urea Nitrogen (Misc Panel 42H, POC Ionized Calcium (Misc Panel) 4.1L, POC Creatinine (Misc Panel) 1.8H, POC Hematocrit (Misc Panel) 56.0H 05/15/19 12:06: Prothrombin Time 15.5H, Prothromb Time International Ratio 1.26, Activated Partial Thromboplast Time 38.1 05/15/19 12:13: Lactic Acid Level 2.2*H 05/15/19 12:18: Magnesium Level 2.5H 05/15/19 14:26: Urine Color YELLOW, Urine Appearance HAZY, Urine pH 5.0, Urine Specific [place] 1.026, Urine Protein 1+H, Urine Glucose (UA) NEGATIVE, Urine Ketones TRACEH, Urine Blood 2+H, Urine Nitrite NEGATIVE, Urine Bilirubin NEGATIVE, Urine Urobilinogen 0.2, Urine Leukocyte Esterase NEGATIVE, Urine WBC (Auto) 1, Urine RBC (Auto) 41H, Urine Hyaline Casts (Auto) 3, Urine Bacteria (Auto) NEGATIVE, Urine Squamous Epithelial Cells 0, Urine Calcium Oxalate Cryst (Auto) SMALL, Urine Mucus (Auto) SMALL, Urine Sperm (Auto) CBC/BMP Laboratory Tests 05/15/19 11:11 Red Blood Count 5.95, Mean Corpuscular Volume 92.8, Mean Corpuscular Hemoglobin 30.8, Mean Corpuscular Hemoglobin Concent 33.2, Red Cell Distribution Width 14.6 H, Neutrophils (%) (Auto) 86.3 H, Lymphocytes (%) (Auto) 8.0 L, Monocytes (%) (Auto) 4.9, Eosinophils (%) (Auto) 0.0, Basophils (%) (Auto) 0.3, Neutrophils # (Auto) 15.6 H, Lymphocytes # (Auto) 1.5, Monocytes # (Auto) 0.9 H, Eosinophils # (Auto) 0.0, Basophils # (Auto) 0.1 Microbiology Microbiology 05/15/19 Blood Culture, Received Pending 05/15/19 Blood Culture, Received Pending Problems (1) Sepsis Status: Acute Problem Text: 78 years old white male accompanied by his who complains of worsening mental status since last 3 days, not eating or drinking and also shortness of breath but no fever is being admitted to the hospital with diagnosis of sepsis of unknown etiology Chest x-ray is negative Abdominal CT as per Dr. Galeano essentially BC count is 18,000 Lactic acid on admission 2.2 and repeat is 2.5 Electrolytes and H&H are normal BUN is 42, creatinine 1.8 Patient is also tachycardic, hence qualifies the diagnosis of sepsis by SIRS criteria I will start patient on broad-spectrum antibiotics such as Zosyn and vancomycin until the final diagnosis is made IV fluids normal saline 100 mL per hour with close monitoring not to fluid overload him Once the patient is hydrated enough, then a repeat chest x-ray can be obtained to rule out pneumonia Respiratory panel was ordered but is still pending Blood cultures and urine culture also has been ordered which are pending DVT prophylaxis, patient is already on anticoagulation with apaxiban Regular diet Patient is a wheelchair-bound, hence a bed rest with bedside commode with assistance Continue home meds (2) HTN (hypertension) Status: Chronic Problem Text: Under control Continue home meds (3) Hyperlipemia Status: Chronic Problem Specific Plan: Repeat Labs Problem Text: Continue home meds (4) Sick sinus syndrome Status: Chronic Problem Text: Status post AICD and pacemaker placement On library monitor for secondary tachycardia Continue home meds including beta blockers Plan / VTE VTE Prophylaxis Ordered?: Yes SIVA KIRK MD May 15, 2019 16:20
[2019-05-15] MEDS ORDERED: PIPERACILLIN/TAZOBACTAM SOD 3.375 GM in D5W MINI-BAG PLUS 50 ML IV ONE (16:45)
--- NOTE | 2019-05-15 16:51 | REP ---
CT abdomen and pelvis without IV contrast: History: Abdomen pain. Generalized abdomen pain. The patient reports history of previous cholecystectomy and appendectomy. Findings: Preliminary digital survey statistician radiograph demonstrates clips in the right upper quadrant and a pacemaker in the heart. The lung bases show no evidence of infiltrate or effusion. The liver and the spleen are normal in size homogeneous in texture. No adrenal lesion is seen. There is a descending duodenal diverticulum. There is mild edema around the pancreatic head with no evidence of mass or fluid collection. Question pancreatitis. There is a cortical cyst anteriorly in the lower pole left kidney measuring 2.8 cm in diameter. There is no evidence of hydronephrosis or renal calculus. No retroperitoneal mass or adenopathy is observed. Vascular calcification is noted in the aorta and its branches. No retroperitoneal mass or adenopathy is observed. The prostate is mildly enlarged and contains one or two dystrophic calcifications. Urinary bladder is unremarkable. No pelvic mass or adenopathy is observed. Small and large bowel loops are unremarkable. No abdominal wall defect is observed. Bone window settings show degenerative spondylosis changes in the lumbar spine. Impression: Question mild pancreatitis changes with edema around the pancreatic head. Descending duodenal diverticulum. Post cholecystectomy and appendectomy. Left renal cyst. Otherwise negative. Electronically Signed by Prabhjot Mittal MD 05/16/2019 09:32 A
[2019-05-15] MEDS: NS 1,000 ML IV SCH (17:00)
[2019-05-15 18:10] VITALS: BP 123/81
[2019-05-15] MEDS: SERTRALINE HCL 50 MG TAB PO SCH (18:25)
[2019-05-15] MEDS: PANTOPRAZOLE 40MG TAB (PROTONIX) PO SCH (18:26)
[2019-05-15] MEDS: ASPIRIN 81 MG ENTERIC TAB PO SCH (18:26)
[2019-05-15] MEDS: METOPROLOL SUCC (TopROL XL) 50MG **XL** TAB PO SCH (18:26)
[2019-05-15] MEDS: VITAMIN D 1,000 INTERNATIONAL UNITS TABLET PO SCH (18:26)
[2019-05-15] MEDS: CYANOCOBALAMIN 500 MCG TAB PO SCH (18:26)
[2019-05-15] MEDS: AMIODARONE 200 MG TAB (PACERONE) PO SCH (18:26)
[2019-05-15] MEDS: ENTRESTO 24-26MG TABLET (SACUBITRIL/VALSARTAN) PO SCH (19:37)
[2019-05-15] MEDS: ROSUVASTATIN 10 MG TAB (CRESTOR) PO SCH (19:38)
[2019-05-15] MEDS: POTASSIUM CHLORIDE 10 MEQ SR TABLET PO SCH (19:38)
[2019-05-15] MEDS: APIXABAN 2.5 MG TAB (ELIQUIS) PO SCH (19:38)
[2019-05-15] MEDS: VANCOMYCIN HCL 1,000 MG, VIAL MATE ADAPTER 1 EACH in D5W 250 ML IV SCH ×2 (19:57→21:13)
[2019-05-15 19:58] VITALS: BP 156/94
[2019-05-15 20:34] LABS: CALCIUM LEVEL 8.7 MG/DL (8.8-10.2); CREATININE FOR GFR 1.5 MG/DL (0.70-1.30); GLOMERULAR FILTRATION RATE 47.9 (>35); POTASSIUM SERUM 3.3 MEQ/L (3.5-5.1); TROPONIN I 0.08 NG/ML (< 0.10)
--- NOTE | 2019-05-15 20:58 | ECGEPIP ---
[facility] - ED Test Date: 2019-05-15 Pat Name: CHELSEA MCBRIDE Department: Room: - Gender: Male Private Pilot: POLLY : 1940 Requested By: Lizet Rutherford Order Number: [id number] Reading MD: Lizet Rutherford Measurements Intervals [place] Rate: 104 P: 237 MD: 205 QRS: -64 QRSD: 120 T: 129 QT: 381 QTc: 502 Interpretive Statements ELECTRONIC ATRIAL PACEMAKER ELECTRONIC VENTRICULAR PACEMAKER ABNORMAL RHYTHM ECG Electronically Signed on 05-15-2019 20:58:12 EDT by Lizet Rutherford
--- NOTE | 2019-05-15 21:10 | PHACANCOPD ---
PHARMACY VANCOMYCIN DOSING Pt Demographics Demographics Patient Age:78 , Weight:98.900 , Gender: male Adjusted Body Weight Date: 05/15/19, Adjusted Body Weight: [90] Kg Events Past 24 Hours Events Past 24 Hours: NO: Dialysis, Diuretic Therapy, Change in CrCl, Fever, Elevation in WBC, Pending Diagnostics, Pending Procedures, Other Vancomycin Vancomycin indication: SEVERE SEPSIS, PNEUMONIA Vancomycin Target Ranges: 15-20 mcg/ml Vancomycin Load Y/N: Yes Load Dose Date Time Vancomycin Load Dose: 2g Date: 05/15/19 Time: 20:00 Vancomycin Dose Date: 05/15/19. Current Vancomycin Dose: [1g iv q24h] Intermittent Dosing?: No Labs Labs Item Value Date Time White Blood Count 18.1 10^3/uL H 05/15/19 1111 Creatinine 1.50 MG/DL H 05/15/19 2000 Micro Microbiology 05/15/19 Respiratory Virus Panel (PCR) (ISABELL) - Final, Complete 05/15/19 Blood Culture, Received Pending 05/15/19 Blood Culture, Received Pending Creatinine Clearance Date:05/15/19. Creatinine Clearance: [46.9ml/min]. Pending Labs mrsa pcr Assessment and Plan Maintaining Current Dose?: Yes Reason for dose change: No Dose Change Pharmacist Note Pharmacist Note Date: 05/15/19. Pharmacist note:Pt is an 78 year old male being treated for severe sepsis and pneumonia goal trough 15-20mcg/ml. The patient has not been treated with vancomycin here at [facility] in the past. To achieve goal a loading dose of 2g was started 05/15/19 @ 20:00. Maintenance therapy will consist of 1g IV every 24 hours. We will continue to monitor and adjust the dose as needed. KASEY DOBSON PHARMACY May 15, 2019 21:10
[2019-05-15] MEDS ORDERED: POTASSIUM CHLORIDE 10 MEQ SR TABLET PO ONE (22:00)
[2019-05-15] MEDS ORDERED: ONDANSETRON 4MG/2ML VIAL (J2405) IV ONE (22:30)
[2019-05-15 23:59] VITALS: BP 133/68
[2019-05-16] MEDS: PIPERACILLIN/TAZOBACTAM SOD 3.375 GM in D5W MINI-BAG PLUS 50 ML IV SCH ×5 (00:58→23:43)
[2019-05-16] MEDS: NS 1,000 ML IV SCH ×2 (00:59→12:30)
[2019-05-16 04:00] VITALS: BP 143/68
[2019-05-16] MEDS: LEVOTHYROXINE 25MCG TABLET (0.025MG) PO SCH (06:18)
[2019-05-16 06:31] LABS: HEMATOCRIT 47.9 % (42.0-52.0); MEAN CORPUSCULAR HEMOGLOBIN 30.3 pg (27.0-33.0); MEAN CORPUSCULAR HGB CONC 32.8 g/dl (32.0-36.5); MEAN CORPUSCULAR VOLUME 92.3 fl (80.0-96.0); PLATELET COUNT, AUTOMATED 313 10^3/uL (150-450); RED BLOOD COUNT 5.19 10^6/uL (4.30-6.10); WHITE BLOOD COUNT 19.4 10^3/uL (4.0-10.0)
[2019-05-16 06:34] LABS: HEMOGLOBIN 15.7 g/dl (13.5-17.5)
[2019-05-16 07:15] LABS: ALBUMIN 2.7 GM/DL (3.2-5.2); CALCIUM LEVEL 8.4 MG/DL (8.8-10.2); CREATININE FOR GFR 1.4 MG/DL (0.70-1.30); GLOMERULAR FILTRATION RATE 51.9 (>35); MAGNESIUM LEVEL 2.1 MG/DL (1.8-2.4); POTASSIUM SERUM 3.7 MEQ/L (3.5-5.1); TOTAL PROTEIN 6.6 GM/DL (6.4-8.2)
[2019-05-16] MEDS: VITAMIN D 1,000 INTERNATIONAL UNITS TABLET PO SCH (07:42)
[2019-05-16] MEDS: PANTOPRAZOLE 40MG TAB (PROTONIX) PO SCH (07:43)
[2019-05-16] MEDS: APIXABAN 2.5 MG TAB (ELIQUIS) PO SCH ×2 (07:43→20:10)
[2019-05-16] MEDS: CYANOCOBALAMIN 500 MCG TAB PO SCH (07:43)
[2019-05-16] MEDS: SERTRALINE HCL 50 MG TAB PO SCH (07:43)
[2019-05-16] MEDS: POTASSIUM CHLORIDE 10 MEQ SR TABLET PO SCH ×2 (07:43→20:10)
[2019-05-16] MEDS: ASPIRIN 81 MG ENTERIC TAB PO SCH (07:43)
[2019-05-16] MEDS: METOPROLOL SUCC (TopROL XL) 50MG **XL** TAB PO SCH (07:44)
[2019-05-16] MEDS: AMIODARONE 200 MG TAB (PACERONE) PO SCH (07:44)
[2019-05-16 08:00] VITALS: BP 147/85
--- NOTE | 2019-05-16 08:32 | IPNPDOC ---
Subjective Date Seen The patient was seen on 05/16/19. Subjective Chief Complaint/HPI MS changes, SOB Events since last encounter Admitted overnight. Given IVF and started on Zosyn IV. Patient's mentation has slowly improved per documentation. Patient complaining of regurgitation/nausea for several days. Answers are vague in response. Spoke with patient's son who advised patient has been ill since early April. del started with a URI and son, who is a PA, treated with doxycycline for presumed pneumonia. Son states patient has really not improved since the URI. Patient developed diarrhea pos abx which improved with cutting out dairy. 3 days ago patient started with nausea and developed vomiting yesterday which prompted to bring him into ED. CT abd/pelvis shows questionable pancreatitis. General: Reports: ROS Unobtainable Gastrointestinal: Reports: Nausea, Other Symptoms (regurgitation) Objective Physical Examination General Exam: Positive: Alert, Cooperative, Other (, oriented 1) Eye Exam: Positive: PERRLA, Conjunctiva & lids normal ENT Exam: Positive: Mucous membr. moist/pink Neck Exam: Positive: Supple Chest Exam: Positive: Clear to auscultation, Normal air movement Heart Exam: Positive: Rate Normal, Normal S1, Normal S2 Telemetry: Positive: Tachycardia Abdomen Exam: Positive: Normal bowel sounds, Soft; Negative: Tenderness Extremity Exam: Positive: Normal pulses Skin Exam: Positive: Nl turgor and temperature Neuro Exam: Positive: Strength at 5/5 X4 ext, Sensation Intact Assessment /Plan Problems (1) Pancreatitis Status: Acute Problem Text: Amylase, lipase pending. will keep NPO. Continue IVF. (2) Sepsis Status: Acute Problem Text: repeat CXR today. WBC 19,000. afebrile. Repeat lactic acid remained elevated. (3) GERD (gastroesophageal reflux disease) (4) Diastolic CHF Status: Chronic Problem Text: follows with Dr. Dacosta, cardiology. on entresto. monitor I/O. Appears well compensated. (5) Paroxysmal A-fib Status: Chronic Response to Treatment: Stable Problem Text: anti-coagulated with Eliquis (6) CAD (coronary artery disease) Status: Chronic Response to Treatment: Stable (7) Hyperlipemia Status: Chronic Response to Treatment: Stable (8) HTN (hypertension) Status: Chronic Response to Treatment: Stable (9) Sick sinus syndrome Status: Chronic Response to Treatment: Stable Problem Text: pacemaker (10) Hypothyroid Status: Chronic Plan/VTE VTE Prophylaxis Ordered?: Yes VS, I&O, 24H, Fishbone Vital Signs/I&O Vital Signs Date Time Temp Pulse Resp B/P (MAP) Pulse Ox O2 Delivery O2 Flow Rate FiO2 05/16/19 07:44 80 147/85 05/16/19 04:00 96.7 20 97 05/15/19 10:30 Room Air I&O- Last 24 Hours up to 6 AM 05/16/19 05:59 Intake Total 2250 ml Output Total 350 ml Balance 1900 ml Laboratory Data 24H LABS Laboratory Tests 2 05/15/19 11:11: Immature Granulocyte % (Auto) 0.5, White Blood Count 18.1H, Red Blood Count 5.95, Hemoglobin 18.3H, Hematocrit 55.2H, Mean Corpuscular Volume 92.8, Mean Corpuscular Hemoglobin 30.8, Mean Corpuscular Hemoglobin Concent 33.2, Red Cell Distribution Width 14.6H, Platelet Count 328, Neutrophils (%) (Auto) 86.3H, Lymphocytes (%) (Auto) 8.0L, Monocytes (%) (Auto) 4.9, Eosinophils (%) (Auto) 0.0, Basophils (%) (Auto) 0.3, Neutrophils # (Auto) 15.6H, Lymphocytes # (Auto) 1.5, Monocytes # (Auto) 0.9H, Eosinophils # (Auto) 0.0, Basophils # (Auto) 0.1, Nucleated Red Blood Cells % (auto) 0.0, Aspartate Amino Transf (AST/SGOT) 40H, Alanine Aminotransferase (ALT/SGPT) 53, Alkaline Phosphatase 99, Total Bilirubin 1.1H, Direct Bilirubin 0.3H, Ammonia 18, Total Creatine Kinase 209, Creatine Kinase MB 4.7H, Creatine Kinase MB Relative Index 2.25, Troponin I 0.08, Total P rotein 7.6, Albumin 3.6, Albumin/Globulin Ratio 0.90L, Amylase Level 16L, Lipase 159 05/15/19 11:19: POC Glucose (Misc Panel) 149H, POC Sodium (Misc Panel) 141, POC Potassium (Misc Panel) 3.8, POC Chloride (Misc Panel) 106, POC Total CO2 (Misc Panel) 22.0L, POC Blood Urea Nitrogen (Misc Panel 42H, POC Ionized Calcium (Misc Panel) 4.1L, POC Creatinine (Misc Panel) 1.8H, POC Hematocrit (Misc Panel) 56.0H 05/15/19 12:06: Prothrombin Time 15.5H, Prothromb Time International Ratio 1.26, Activated Partial Thromboplast Time 38.1 05/15/19 12:13: Lactic Acid Level 2.2*H 05/15/19 12:18: Magnesium Level 2.5H 05/15/19 14:26: Urine Color YELLOW, Urine Appearance HAZY, Urine pH 5.0, Urine Specific [place] 1.026, Urine Protein 1+H, Urine Glucose (UA) NEGATIVE, Urine Ketones TRACEH, Urine Blood 2+H, Urine Nitrite NEGATIVE, Urine Bilirubin NEGATIVE, Urine Urobilinogen 0.2, Urine Leukocyte Esterase NEGATIVE, Urine WBC (Auto) 1, Urine RBC (Auto) 41H, Urine Hyaline Casts (Auto) 3, Urine Bacteria (Auto) NEGATIVE, Urine Squamous Epithelial Cells 0, Urine Calcium Oxalate Cryst (Auto) SMALL, Urine Mucus (Auto) SMALL, Urine Sperm (Auto) 05/15/19 17:32: Lactic Acid Followup at 4 Hours 2.1*H 05/15/19 18:00: Methicillin-Resist S.aureus DNA PCR NOT DETECTED 05/15/19 20:00: Anion Gap 10, Glomerular Filtration Rate 47.9, Blood Urea Nitrogen 39H, Creatinine 1.50H, Sodium Level 141, Potassium Level 3.3L, Chloride Level 108H, Carbon Dioxide Level 23, Calcium Level 8.7L, Troponin I 0.08 05/16/19 06:09: Anion Gap 8, Glomerular Filtration Rate 51.9, Blood Urea Nitrogen 30H, Creatinine 1.40H, Sodium Level 140, Potassium Level 3.7, Chloride Level 107, Carbon Dioxide Level 25, Calcium Level 8.4L, Nucleated Red Blood Cells % (auto) 0.0, Aspartate Amino Transf (AST/SGOT) 29, Alanine Aminotransferase (ALT/SGPT) 37, Alkaline Phosphatase 78, Total Bilirubin 1.0, Total Protein 6.6, Albumin 2.7#L, Magnesium Level 2.1, Albumin/Globulin Ratio 0.69L CBC/BMP Laboratory Tests 05/15/19 11:11 Red Blood Count 5.95, Mean Corpuscular Volume 92.8, Mean Corpuscular Hemoglobin 30.8, Mean Corpuscular Hemoglobin Concent 33.2, Red Cell Distribution Width 14.6 H, Neutrophils (%) (Auto) 86.3 H, Lymphocytes (%) (Auto) 8.0 L, Monocytes (%) (Auto) 4.9, Eosinophils (%) (Auto) 0.0, Basophils (%) (Auto) 0.3, Neutrophils # (Auto) 15.6 H, Lymphocytes # (Auto) 1.5, Monocytes # (Auto) 0.9 H, Eosinophils # (Auto) 0.0, Basophils # (Auto) 0.1 05/15/19 20:00 Calcium Level 8.7 L 05/16/19 06:09 Red Blood Count 5.19, Mean Corpuscular Volume 92.3, Mean Corpuscular Hemoglobin 30.3, Mean Corpuscular Hemoglobin Concent 32.8, Red Cell Distribution Width 14.5, Calcium Level 8.4 L, Aspartate Amino Transf (AST/SGOT) 29, Alanine Aminotransferase (ALT/SGPT) 37, Alkaline Phosphatase 78, Total Bilirubin 1.0, Total Protein 6.6, Albumin 2.7 #L Microbiology Microbiology 05/15/19 Respiratory Virus Panel (PCR) (ISABELL) - Final, Complete 05/15/19 Blood Culture, Received Pending 05/15/19 Blood Culture, Received Pending Tabitha Serra MANAGER FRONT May 16, 2019 08:32
[2019-05-16] MEDS ORDERED: ENOXAPARIN 40 MG/0.4 ML SYRINGE (J1650) SC SCH (09:00)
--- NOTE | 2019-05-16 09:48 | REP ---
Chest x-ray: Three views. History: Leukocytosis and shortness of breath. Comparison study: May 15, 2019. Findings: Monitoring electrodes are seen overlying the chest. Bipolar pacemaker is again noted in the right side of the the heart via the left subclavian vein. The lungs are symmetrically aerated and free of infiltrate. Pleural angles are sharp. Heart does not appear to be enlarged. The aorta is somewhat tortuous. There are degenerative changes in the thoracic spine and shoulders. Impression: Pacemaker in place. Otherwise no acute disease. Electronically Signed by Prabhjot Mittal MD 05/16/2019 09:40 A
[2019-05-16 12:00] VITALS: BP 101/57
[2019-05-16 16:00] VITALS: BP 131/72
[2019-05-16 20:00] VITALS: BP 115/65
[2019-05-16] MEDS ORDERED: VANCOMYCIN HCL 1,000 MG, VIAL MATE ADAPTER 1 EACH in D5W 250 ML IV SCH (20:00)
[2019-05-16] MEDS ORDERED: VANCOMYCIN HCL 750 MG, VIAL MATE ADAPTER 1 EACH in D5W 250 ML IV SCH (20:00)
[2019-05-16] MEDS: ROSUVASTATIN 10 MG TAB (CRESTOR) PO SCH (20:10)
[2019-05-16] MEDS: PANTOPRAZOLE 40MG INJ (PROTONIX) (C9113) IV SCH (20:10)
[2019-05-16] MEDS: ENTRESTO 24-26MG TABLET (SACUBITRIL/VALSARTAN) PO SCH (20:10)
[2019-05-16] MEDS ORDERED: VANCOMYCIN HCL 500 MG in D5W MINI-BAG PLUS 100 ML IV SCH (21:00)
[2019-05-17] VITALS: BP 130/70
[2019-05-17 04:00] VITALS: BP 125/80
[2019-05-17] MEDS: NS 1,000 ML IV SCH (04:44)
[2019-05-17] MEDS: PIPERACILLIN/TAZOBACTAM SOD 3.375 GM in D5W MINI-BAG PLUS 50 ML IV SCH ×3 (05:47→17:59)
[2019-05-17] MEDS: LEVOTHYROXINE 25MCG TABLET (0.025MG) PO SCH (05:47)
[2019-05-17 06:02] LABS: BASO % 0.4 % (0.0-1.0); EOS # 0.1 10^3/uL (0.0-0.5); EOS % 0.8 % (0.0-3.0); HEMATOCRIT 44.2 % (42.0-52.0); LYMPH # 1.7 10^3/uL (1.5-5.0); LYMPH % 15.5 % (24.0-44.0); MEAN CORPUSCULAR HEMOGLOBIN 30.3 pg (27.0-33.0); MEAN CORPUSCULAR HGB CONC 31.7 g/dl (32.0-36.5); MEAN CORPUSCULAR VOLUME 95.7 fl (80.0-96.0); MONO # 0.9 10^3/uL (0.0-0.8); NEUTROPHILS % 74.9 % (36.0-66.0); PLATELET COUNT, AUTOMATED 221 10^3/uL (150-450); RED BLOOD COUNT 4.62 10^6/uL (4.30-6.10); WHITE BLOOD COUNT 10.7 10^3/uL (4.0-10.0)
[2019-05-17 06:20] LABS: ALBUMIN 2.2 GM/DL (3.2-5.2); ALT/SGPT 32 U/L (12-78); BILIRUBIN,TOTAL 0.8 MG/DL (0.2-1.0); BLOOD UREA NITROGEN 21 MG/DL (7-18); CARBON DIOXIDE LEVEL 20 MEQ/L (21-32); CHLORIDE LEVEL 114 MEQ/L (98-107); GLOMERULAR FILTRATION RATE > 60.0 (>35); GLUCOSE, FASTING 82 MG/DL (70-100); POTASSIUM SERUM 3.2 MEQ/L (3.5-5.1); SODIUM LEVEL 141 MEQ/L (136-145); TOTAL PROTEIN 6.1 GM/DL (6.4-8.2)
[2019-05-17] MEDS: AMIODARONE 200 MG TAB (PACERONE) PO SCH (07:43)
[2019-05-17] MEDS: METOPROLOL SUCC (TopROL XL) 50MG **XL** TAB PO SCH (07:43)
[2019-05-17] MEDS: ASPIRIN 81 MG ENTERIC TAB PO SCH (07:44)
[2019-05-17] MEDS: POTASSIUM CHLORIDE 10 MEQ SR TABLET PO SCH ×2 (07:44→21:33)
[2019-05-17] MEDS: VITAMIN D 1,000 INTERNATIONAL UNITS TABLET PO SCH (07:44)
[2019-05-17] MEDS: PANTOPRAZOLE 40MG INJ (PROTONIX) (C9113) IV SCH ×2 (07:44→21:33)
[2019-05-17] MEDS: SERTRALINE HCL 50 MG TAB PO SCH (07:44)
[2019-05-17] MEDS: APIXABAN 2.5 MG TAB (ELIQUIS) PO SCH ×2 (07:44→21:33)
[2019-05-17] MEDS: CYANOCOBALAMIN 500 MCG TAB PO SCH (07:44)
[2019-05-17] MEDS ORDERED: POTASSIUM CHLORIDE 10 MEQ SR TABLET PO ONE (07:45)
[2019-05-17 07:55] VITALS: BP 112/61
--- NOTE | 2019-05-17 09:20 | IPNPDOC ---
Subjective Date Seen The patient was seen on 05/17/19. Subjective Chief Complaint/HPI AMS Events since last encounter patient has tolerated clears since yesterday. admits to continuing epigastric discomfort w/o nausea or vomiting. Constitutional: Denies: Chills, Fever, Night Sweats Pulmonary: Denies: Dyspnea, Cough Cardiovascular: Denies: Chest Pain, Palpitations, Orthopnea, Paroxysmal Noc. Dyspnea, Lt Headedness Gastrointestinal: Reports: Abdominal Pain (epigastric); Denies: Nausea, Vomiting, Diarrhea, Constipation Objective Physical Examination General Exam: Positive: Alert, Cooperative, Other (, oriented 1) Eye Exam: Positive: PERRLA, Conjunctiva & lids normal ENT Exam: Positive: Mucous membr. moist/pink Neck Exam: Positive: Supple Chest Exam: Positive: Clear to auscultation, Normal air movement Heart Exam: Positive: Rate Normal, Normal S1, Normal S2 Telemetry: Positive: Tachycardia Abdomen Exam: Positive: Normal bowel sounds, Soft; Negative: Tenderness Extremity Exam: Positive: Normal pulses Skin Exam: Positive: Nl turgor and temperature Neuro Exam: Positive: Strength at 5/5 X4 ext, Sensation Intact Assessment /Plan Problems (1) Sepsis Status: Acute Problem Text: 05/17/19: WBC down to 10,000. CXR negative. afebrile. DAY #2 Pip/lucio. Bl cxs with no growth. respiratory virus panel negative. stool cxs pending repeat CXR today. WBC 19,000. afebrile. Repeat lactic acid remained elevated. (2) GERD (gastroesophageal reflux disease) Status: Chronic Problem Text: Currently on Pantoprazole 40 mg IV q 12 hrs. consider gastro consult given epigastric pain (3) Diastolic CHF Status: Chronic Problem Text: follows with Dr. Dacosta, cardiology. on entresto. monitor I/O. Appears well compensated. (4) Paroxysmal A-fib Status: Chronic Response to Treatment: Stable Problem Text: anti-coagulated with Eliquis (5) CAD (coronary artery disease) Status: Chronic Response to Treatment: Stable (6) Hyperlipemia Status: Chronic Response to Treatment: Stable (7) HTN (hypertension) Status: Chronic Response to Treatment: Stable (8) Sick sinus syndrome Status: Chronic Response to Treatment: Stable Problem Text: pacemaker (9) Hypothyroid Status: Chronic Plan/VTE VTE Prophylaxis Ordered?: Yes VS, I&O, 24H, Leslye Vital Signs/I&O Vital Signs Date Time Temp Pulse Resp B/P (MAP) Pulse Ox O2 Delivery O2 Flow Rate FiO2 05/17/19 07:55 97.2 71 18 112/61 (78) 95 05/15/19 10:30 Room Air I&O- Last 24 Hours up to 6 AM 05/17/19 06:00 Intake Total 1842 ml Output Total 0 ml Balance 1842 ml Laboratory Data 24H LABS Laboratory Tests 2 05/17/19 05:35: Immature Granulocyte % (Auto) 0.4, White Blood Count 10.7H, Red Blood Count 4.62, Hemoglobin 14.0, Hematocrit 44.2, Mean Corpuscular Volume 95.7, Mean Corpuscular Hemoglobin 30.3, Mean Corpuscular Hemoglobin Concent 31.7L, Red Cell Distribution Width 14.6H, Platelet Count 221, Neutrophils (%) (Auto) 74.9H, Lymphocytes (%) (Auto) 15.5L, Monocytes (%) (Auto) 8.0H, Eosinophils (%) (Auto) 0.8, Basophils (%) (Auto) 0.4, Neutrophils # (Auto) 8.0, Lymphocytes # (Auto) 1.7, Monocytes # (Auto) 0.9H, Eosinophils # (Auto) 0.1, Basophils # (Auto) 0.0, Nucleated Red Blood Cells % (auto) 0.0, Anion Gap 7L, Glomerular Filtration Rate > 60.0, Blood Urea Nitrogen 21H, Creatinine 1.10, Sodium Level 141, Potassium Level 3.2L, Chloride Level 114H, Carbon Dioxide Level 20L, Calcium Level 8.0L, Aspartate Amino Transf (AST/SGOT) 24, Alanine Aminotransferase (ALT/SGPT) 32, Alkaline Phosphatase 74, Total Bilirubin 0.8, Total Protein 6.1L, Albumin 2.2L, Albumin/Globulin Ratio 0.56L CBC/BMP Laboratory Tests 05/17/19 05:35 Red Blood Count 4.62, Mean Corpuscular Volume 95.7, Mean Corpuscular Hemoglobin 30.3, Mean Corpuscular Hemoglobin Concent 31.7 L, Red Cell Distribution Width 14.6 H, Neutrophils (%) (Auto) 74.9 H, Lymphocytes (%) (Auto) 15.5 L, Monocytes (%) (Auto) 8.0 H, Eosinophils (%) (Auto) 0.8, Basophils (%) (Auto) 0.4, Neutrophils # (Auto) 8.0, Lymphocytes # (Auto) 1.7, Monocytes # (Auto) 0.9 H, Eosinophils # (Auto) 0.1, Basophils # (Auto) 0.0, Calcium Level 8.0 L, Aspartate Amino Transf (AST/SGOT) 24, Alanine Aminotransferase (ALT/SGPT) 32, Alkaline Phosphatase 74, Total Bilirubin 0.8, Total Protein 6.1 L, Albumin 2.2 L Microbiology Microbiology 05/15/19 Respiratory Virus Panel (PCR) (ISABELL) - Final, Complete 05/15/19 Blood Culture - Preliminary, Resulted No growth after 24 hours . All specim... 05/15/19 Blood Culture - Preliminary, Resulted No growth after 24 hours . All specim... Tabitha Serra May 17, 2019 09:20
[2019-05-17 12:00] VITALS: BP 129/68
[2019-05-17 15:58] VITALS: BP 114/61
[2019-05-17 20:00] VITALS: BP 135/75
--- NOTE | 2019-05-17 20:19 | PHACANCOPD ---
PHARMACY VANCOMYCIN DOSING Pt Demographics Demographics Patient Age:78 , Weight:92.900 , Gender: male Adjusted Body Weight Date: 05/15/19, Adjusted Body Weight: [90] Kg Events Past 24 Hours Events Past 24 Hours: YES: Change in CrCl; NO: Dialysis, Diuretic Therapy, Fever, Elevation in WBC, Pending Diagnostics, Pending Procedures, Other Vancomycin Vancomycin indication: SEVERE SEPSIS, PNEUMONIA Vancomycin Target Ranges: 15-20 mcg/ml Vancomycin Load Y/N: Yes Load Dose Date Time Vancomycin Load Dose: 2g Date: 05/15/19 Time: 20:00 Vancomycin Dose Date: 05/15/19. Current Vancomycin Dose: [1.25g iv q24h] Intermittent Dosing?: No Labs Micro Microbiology 05/17/19 Gastrointestinal Tract Panel (PCR) - Final, Complete 05/15/19 Respiratory Virus Panel (PCR) (ISABELL) - Final, Complete 05/15/19 Urine Culture, Received Pending 05/15/19 Blood Culture - Preliminary, Resulted No Growth after 48 hours. All Specime... 05/15/19 Blood Culture - Preliminary, Resulted No Growth after 48 hours. All Specime... Creatinine Clearance Date:05/15/19. Creatinine Clearance: [64ml/min]. Assessment and Plan Maintaining Current Dose?: No Reason for dose change: Trough too low Pharmacist Note Pharmacist Note Date: 05/17/19, Pharmacist Note: Since admission the patient has had an improvement in renal function with a SCr improving to 1.1mg/dl. A vancomycin trough returned today at 9.2mcg/ml, well below the goal trough of 15-20mcg/ml. Dose was therefore increased to vancomycin 1 gram every 12 hours 05/17/19 @ 2100. We will continue to monitor and make adjustments as needed. Date: 05/15/19. Pharmacist note:Pt is an 78 year old male being treated for severe sepsis and pneumonia goal trough 15-20mcg/ml. The patient has not been treated with vancomycin here at [facility] in the past. To achieve goal a loading dose of 2g was started 05/15/19 @ 20:00. Maintenance therapy will consist of 1g IV every 24 hours. We will continue to monitor and adjust the dose as needed. [facility] May 17, 2019 20:19
[2019-05-17] MEDS ORDERED: VANCOMYCIN HCL 1,000 MG, VIAL MATE ADAPTER 1 EACH in D5W 250 ML IV SCH (21:00)
[2019-05-17] MEDS: ENTRESTO 24-26MG TABLET (SACUBITRIL/VALSARTAN) PO SCH (21:33)
[2019-05-17] MEDS: ROSUVASTATIN 10 MG TAB (CRESTOR) PO SCH (21:33)
[2019-05-18] VITALS: BP 129/66
[2019-05-18] MEDS: PIPERACILLIN/TAZOBACTAM SOD 3.375 GM in D5W MINI-BAG PLUS 50 ML IV SCH ×4 (00:19→17:23)
[2019-05-18 04:00] VITALS: BP 112/65
[2019-05-18 05:51] LABS: BASO # 0.1 10^3/uL (0.0-0.2); BASO % 0.6 % (0.0-1.0); EOS # 0.2 10^3/uL (0.0-0.5); EOS % 1.3 % (0.0-3.0); HEMATOCRIT 45.6 % (42.0-52.0); HEMOGLOBIN 14.8 g/dl (13.5-17.5); LYMPH # 1.8 10^3/uL (1.5-5.0); LYMPH % 14.3 % (24.0-44.0); MEAN CORPUSCULAR HEMOGLOBIN 30.1 pg (27.0-33.0); MEAN CORPUSCULAR HGB CONC 32.5 g/dl (32.0-36.5); MEAN CORPUSCULAR VOLUME 92.9 fl (80.0-96.0); MONO # 0.8 10^3/uL (0.0-0.8); MONO % 6.1 % (0.0-5.0); NEUTROPHILS # 9.5 10^3/uL (1.5-8.5); NEUTROPHILS % 77.4 % (36.0-66.0); PLATELET COUNT, AUTOMATED 256 10^3/uL (150-450); RED BLOOD COUNT 4.91 10^6/uL (4.30-6.10); WHITE BLOOD COUNT 12.2 10^3/uL (4.0-10.0)
[2019-05-18] MEDS: LEVOTHYROXINE 25MCG TABLET (0.025MG) PO SCH (06:06)
[2019-05-18 06:20] LABS: ALBUMIN 2.5 GM/DL (3.2-5.2); ALT/SGPT 30 U/L (12-78); BILIRUBIN,TOTAL 0.6 MG/DL (0.2-1.0); BLOOD UREA NITROGEN 13 MG/DL (7-18); CARBON DIOXIDE LEVEL 26 MEQ/L (21-32); CHLORIDE LEVEL 111 MEQ/L (98-107); CREATININE FOR GFR 1.18 MG/DL (0.70-1.30); GLOMERULAR FILTRATION RATE > 60.0 (>35); GLUCOSE, FASTING 77 MG/DL (70-100); POTASSIUM SERUM 3.3 MEQ/L (3.5-5.1); SODIUM LEVEL 141 MEQ/L (136-145); TOTAL PROTEIN 6.3 GM/DL (6.4-8.2)
[2019-05-18 07:48] VITALS: BP 116/69
--- NOTE | 2019-05-18 07:56 | IPNPDOC ---
Subjective Date Seen The patient was seen on 05/18/19. Subjective Chief Complaint/HPI AMS. sepsis Events since last encounter Denies abdominal pain, n/v/d. GI panel negative. Blood Cultures remain negative. Asking to advance diet. Has tolerated clears. PT recommending rehab due to debility and recurrent falls at home. Constitutional: Denies: Chills, Fever, Night Sweats Pulmonary: Denies: Dyspnea, Cough Cardiovascular: Denies: Chest Pain, Palpitations, Orthopnea, Paroxysmal Noc. Dyspnea, Lt Headedness Gastrointestinal: Denies: Nausea, Vomiting, Abdominal Pain, Diarrhea, Constipation Genitourinary: Denies: Dysuria, Frequency, Incontinence, Retention Objective Physical Examination General Exam: Positive: Alert, Cooperative, Other (, oriented 1) Eye Exam: Positive: PERRLA, Conjunctiva & lids normal ENT Exam: Positive: Mucous membr. moist/pink Neck Exam: Positive: Supple Chest Exam: Positive: Clear to auscultation, Normal air movement Heart Exam: Positive: Rate Normal, Normal S1, Normal S2 Abdomen Exam: Positive: Normal bowel sounds, Soft; Negative: Tenderness Extremity Exam: Positive: Normal pulses Skin Exam: Positive: Nl turgor and temperature Neuro Exam: Positive: Strength at 5/5 X4 ext, Sensation Intact Assessment /Plan Problems (1) Sepsis Status: Acute Response to Treatment: Improving Problem Text: 05/18/2019: WBC stable. D#3 Pip/Lucio. GI panel negative. Vanco DC'd after 3 days of tx. 05/17/19: WBC down to 10,000. CXR negative. afebrile. DAY #2 Pip/lucio. Bl cxs with no growth. respiratory virus panel negative. stool cxs pending repeat CXR today. WBC 19,000. afebrile. Repeat lactic acid remained elevated. (2) GERD (gastroesophageal reflux disease) Status: Chronic Problem Text: will resume Pantoprazole 40 mg po daily. Currently on Pantoprazole 40 mg IV q 12 hrs. consider gastro consult given epigastric pain (3) Diastolic CHF Status: Chronic Problem Text: follows with Dr. Dacosta, cardiology. on entresto. monitor I/O. Appears well compensated. (4) Paroxysmal A-fib Status: Chronic Response to Treatment: Stable Problem Text: anti-coagulated with Eliquis (5) CAD (coronary artery disease) Status: Chronic Response to Treatment: Stable (6) Hyperlipemia Status: Chronic Response to Treatment: Stable (7) HTN (hypertension) Status: Chronic Response to Treatment: Stable (8) Sick sinus syndrome Status: Chronic Response to Treatment: Stable Problem Text: pacemaker (9) Hypothyroid Status: Chronic (10) Physical debility Problem Text: continue with pursuing Rehab placement. patient and agreeable. PFS aware and managing Plan/VTE VTE Prophylaxis Ordered?: Yes VS, I&O, 24H, Fishbone Vital Signs/I&O Vital Signs Date Time Temp Pulse Resp B/P (MAP) Pulse Ox O2 Delivery O2 Flow Rate FiO2 05/18/19 07:48 96.7 80 18 116/69 (85) 98 05/15/19 10:30 Room Air I&O- Last 24 Hours up to 6 AM 05/18/19 06:00 Intake Total 1370 ml Output Total 0 ml Balance 1370 ml Laboratory Data 24H LABS Laboratory Tests 2 05/17/19 19:02: Vancomycin Level Trough 9.2L 05/18/19 05:37: Immature Granulocyte % (Auto) 0.3, White Blood Count 12.2H, Red Blood Count 4.91, Hemoglobin 14.8, Hematocrit 45.6, Mean Corpuscular Volume 92.9, Mean Corpuscular Hemoglobin 30.1, Mean Corpuscular Hemoglobin Concent 32.5, Red Cell Distribution Width 14.5, Platelet Count 256, Neutrophils (%) (Auto) 77.4H, Lymphocytes (%) (Auto) 14.3L, Monocytes (%) (Auto) 6.1H, Eosinophils (%) (Auto) 1.3, Basophils (%) (Auto) 0.6, Neutrophils # (Auto) 9.5H, Lymphocytes # (Auto) 1.8, Monocytes # (Auto) 0.8, Eosinophils # (Auto) 0.2, Basophils # (Auto) 0.1, Nucleated Red Blood Cells % (auto) 0.0, Anion Gap 4L, Glomerular Filtration Rate > 60.0, Blood Urea Nitrogen 13, Creatinine 1.18, Sodium Level 141, Potassium Level 3.3L, Chloride Level 111H, Carbon Dioxide Level 26, Calcium Level 8.0L, Aspartate Amino Transf (AST/SGOT) 27, Alanine Aminotransferase (ALT/SGPT) 30, Alkaline Phosphatase 80, Total Bilirubin 0.6, Total Protein 6.3L, Albumin 2.5L, Albumin/Globulin Ratio 0.66L CBC/BMP Laboratory Tests 05/18/19 05:37 Red Blood Count 4.91, Mean Corpuscular Volume 92.9, Mean Corpuscular Hemoglobin 30.1, Mean Corpuscular Hemoglobin Concent 32.5, Red Cell Distribution Width 14.5, Neutrophils (%) (Auto) 77.4 H, Lymphocytes (%) (Auto) 14.3 L, Monocytes (%) (Auto) 6.1 H, Eosinophils (%) (Auto) 1.3, Basophils (%) (Auto) 0.6, Kesha trophils # (Auto) 9.5 H, Lymphocytes # (Auto) 1.8, Monocytes # (Auto) 0.8, Eosinophils # (Auto) 0.2, Basophils # (Auto) 0.1, Calcium Level 8.0 L, Aspartate Amino Transf (AST/SGOT) 27, Alanine Aminotransferase (ALT/SGPT) 30, Alkaline Phosphatase 80, Total Bilirubin 0.6, Total Protein 6.3 L, Albumin 2.5 L Microbiology Microbiology 05/17/19 Gastrointestinal Tract Panel (PCR) - Final, Complete 05/15/19 Respiratory Virus Panel (PCR) (ISABELL) - Final, Complete 05/15/19 Urine Culture, Received Pending 05/15/19 Blood Culture - Preliminary, Resulted No Growth after 48 hours. All Specime... 05/15/19 Blood Culture - Preliminary, Resulted No Growth after 48 hours. All Specime... Tabitha Serra May 18, 2019 07:56
[2019-05-18] MEDS: VITAMIN D 1,000 INTERNATIONAL UNITS TABLET PO SCH (09:48)
[2019-05-18] MEDS: APIXABAN 2.5 MG TAB (ELIQUIS) PO SCH ×2 (09:49→22:30)
[2019-05-18] MEDS: CYANOCOBALAMIN 500 MCG TAB PO SCH (09:49)
[2019-05-18] MEDS: SERTRALINE HCL 50 MG TAB PO SCH (09:49)
[2019-05-18] MEDS: ASPIRIN 81 MG ENTERIC TAB PO SCH (09:49)
[2019-05-18] MEDS: METOPROLOL SUCC (TopROL XL) 50MG **XL** TAB PO SCH (09:49)
[2019-05-18] MEDS: POTASSIUM CHLORIDE 10 MEQ SR TABLET PO SCH ×2 (09:50→22:30)
[2019-05-18] MEDS: PANTOPRAZOLE 40MG TAB (PROTONIX) PO SCH (09:50)
[2019-05-18] MEDS: AMIODARONE 200 MG TAB (PACERONE) PO SCH (09:50)
[2019-05-18 19:06] VITALS: BP 143/86
[2019-05-18] MEDS: ENTRESTO 24-26MG TABLET (SACUBITRIL/VALSARTAN) PO SCH (22:30)
[2019-05-18] MEDS: ROSUVASTATIN 10 MG TAB (CRESTOR) PO SCH (22:30)
[2019-05-19] MEDS: PIPERACILLIN/TAZOBACTAM SOD 3.375 GM in D5W MINI-BAG PLUS 50 ML IV SCH ×3 (00:08→12:03)
[2019-05-19 03:39] VITALS: BP 172/89
[2019-05-19] MEDS: ACETAMINOPHEN TAB 650MG DOSE (2X325MG) PO PRN ×2 (05:15→20:31)
[2019-05-19] MEDS: LEVOTHYROXINE 25MCG TABLET (0.025MG) PO SCH (05:15)
[2019-05-19 06:05] LABS: BASO # 0.1 10^3/uL (0.0-0.2); BASO % 0.4 % (0.0-1.0); EOS # 0.2 10^3/uL (0.0-0.5); EOS % 1.2 % (0.0-3.0); HEMATOCRIT 44.7 % (42.0-52.0); HEMOGLOBIN 14.5 g/dl (13.5-17.5); LYMPH # 1.6 10^3/uL (1.5-5.0); LYMPH % 11.5 % (24.0-44.0); MEAN CORPUSCULAR HEMOGLOBIN 30.4 pg (27.0-33.0); MEAN CORPUSCULAR HGB CONC 32.4 g/dl (32.0-36.5); MEAN CORPUSCULAR VOLUME 93.7 fl (80.0-96.0); MONO # 0.9 10^3/uL (0.0-0.8); MONO % 6.4 % (0.0-5.0); NEUTROPHILS # 10.9 10^3/uL (1.5-8.5); PLATELET COUNT, AUTOMATED 243 10^3/uL (150-450); RED BLOOD COUNT 4.77 10^6/uL (4.30-6.10); WHITE BLOOD COUNT 13.7 10^3/uL (4.0-10.0)
[2019-05-19 06:19] VITALS: BP 129/66
[2019-05-19 06:23] LABS: ALBUMIN 2.5 GM/DL (3.2-5.2); BILIRUBIN,TOTAL 0.5 MG/DL (0.2-1.0); CALCIUM LEVEL 8.2 MG/DL (8.8-10.2); CREATININE FOR GFR 1.42 MG/DL (0.70-1.30); GLOMERULAR FILTRATION RATE 51.1 (>35); POTASSIUM SERUM 3.2 MEQ/L (3.5-5.1); TOTAL PROTEIN 6.2 GM/DL (6.4-8.2)
[2019-05-19] MEDS: CYANOCOBALAMIN 500 MCG TAB PO SCH (08:51)
[2019-05-19] MEDS: AMIODARONE 200 MG TAB (PACERONE) PO SCH (08:51)
[2019-05-19] MEDS: ASPIRIN 81 MG ENTERIC TAB PO SCH (08:51)
[2019-05-19] MEDS: VITAMIN D 1,000 INTERNATIONAL UNITS TABLET PO SCH (08:51)
[2019-05-19] MEDS: APIXABAN 2.5 MG TAB (ELIQUIS) PO SCH ×2 (08:51→20:30)
[2019-05-19] MEDS: PANTOPRAZOLE 40MG TAB (PROTONIX) PO SCH (08:51)
[2019-05-19] MEDS: METOPROLOL SUCC (TopROL XL) 50MG **XL** TAB PO SCH (08:51)
[2019-05-19] MEDS: SERTRALINE HCL 50 MG TAB PO SCH (08:51)
[2019-05-19] MEDS: POTASSIUM CHLORIDE 10 MEQ SR TABLET PO SCH ×2 (08:52→20:30)
[2019-05-19 14:28] VITALS: BP 120/68
--- NOTE | 2019-05-19 15:23 | IPN ---
DATE: 05/19/2019 Giorgio was a little confused this morning. He woke up and wanted to try to find his who was home. He did not remember that he was in the hospital. He seems better oriented now. PHYSICAL EXAMINATION: VITAL SIGNS: Stable. LUNGS: Clear. HEART: Regular rhythm. ABDOMEN: Soft, nontender. EXTREMITIES: No peripheral edema. LABORATORIES: White count 13.7, hemoglobin 14.5, platelets 243, potassium 3.2. Electrolytes otherwise unremarkable. IMPRESSION: 1. Delirium superimposed on dementia. He is better oriented now. The staff were discussing possibly giving him some Seroquel, but in the past he has been prone to falling when he has had too many psychoactive medications prescribed, so we will just see how things go over the next few days before we take that step again. 2. Diastolic congestive heart failure (CHF). Stabilized and compensated. Continue current regimen. 3. Hypertension. Blood pressure is well controlled. 4. Sepsis. He is off antibiotic. He has been on Zosyn since admission. His white count still remains a little elevated but improved on the vancomycin. At this point, I am going to stop his Zosyn and followup CBC has been ordered. 5. Depression. Continue Zoloft 50 mg daily. His says that he had a good response to increasing the dose of this recently. 6. Atrial fibrillation. Continue Eliquis for thromboembolic prophylaxis.
[2019-05-19] MEDS: DIAPER RELIEF PASTE (DESITIN) 60GM TOP PRN ×2 (16:31→20:32)
[2019-05-19] MEDS: ENTRESTO 24-26MG TABLET (SACUBITRIL/VALSARTAN) PO SCH (20:30)
[2019-05-19] MEDS: ROSUVASTATIN 10 MG TAB (CRESTOR) PO SCH (20:30)
[2019-05-19 22:00] VITALS: BP 157/84
[2019-05-20] MEDS: LEVOTHYROXINE 25MCG TABLET (0.025MG) PO SCH (05:32)
[2019-05-20] MEDS: ACETAMINOPHEN TAB 650MG DOSE (2X325MG) PO PRN ×3 (05:32→22:54)
[2019-05-20 06:00] VITALS: BP 153/86
[2019-05-20 07:44] LABS: BASO # 0.1 10^3/uL (0.0-0.2); BASO % 0.5 % (0.0-1.0); EOS # 0.2 10^3/uL (0.0-0.5); EOS % 2.2 % (0.0-3.0); HEMATOCRIT 41.8 % (42.0-52.0); HEMOGLOBIN 13.6 g/dl (13.5-17.5); LYMPH # 1.5 10^3/uL (1.5-5.0); LYMPH % 15.1 % (24.0-44.0); MEAN CORPUSCULAR HEMOGLOBIN 30.2 pg (27.0-33.0); MEAN CORPUSCULAR HGB CONC 32.5 g/dl (32.0-36.5); MEAN CORPUSCULAR VOLUME 92.9 fl (80.0-96.0); MONO # 0.6 10^3/uL (0.0-0.8); MONO % 6.4 % (0.0-5.0); NEUTROPHILS # 7.4 10^3/uL (1.5-8.5); NEUTROPHILS % 75.5 % (36.0-66.0); PLATELET COUNT, AUTOMATED 230 10^3/uL (150-450); WHITE BLOOD COUNT 9.8 10^3/uL (4.0-10.0)
[2019-05-20 08:04] LABS: ALBUMIN 2.3 GM/DL (3.2-5.2); ALT/SGPT 23 U/L (12-78); BILIRUBIN,TOTAL 0.6 MG/DL (0.2-1.0); BLOOD UREA NITROGEN 14 MG/DL (7-18); CALCIUM LEVEL 8.3 MG/DL (8.8-10.2); CARBON DIOXIDE LEVEL 25 MEQ/L (21-32); CHLORIDE LEVEL 111 MEQ/L (98-107); CREATININE FOR GFR 1.14 MG/DL (0.70-1.30); GLOMERULAR FILTRATION RATE > 60.0 (>35); GLUCOSE, FASTING 89 MG/DL (70-100); POTASSIUM SERUM 3.4 MEQ/L (3.5-5.1); SODIUM LEVEL 142 MEQ/L (136-145)
[2019-05-20] MEDS: SERTRALINE HCL 50 MG TAB PO SCH (08:35)
[2019-05-20] MEDS: ASPIRIN 81 MG ENTERIC TAB PO SCH (08:35)
[2019-05-20] MEDS: VITAMIN D 1,000 INTERNATIONAL UNITS TABLET PO SCH (08:35)
[2019-05-20] MEDS: AMIODARONE 200 MG TAB (PACERONE) PO SCH (08:36)
[2019-05-20] MEDS: CYANOCOBALAMIN 500 MCG TAB PO SCH (08:36)
[2019-05-20] MEDS: METOPROLOL SUCC (TopROL XL) 50MG **XL** TAB PO SCH (08:36)
[2019-05-20] MEDS: APIXABAN 2.5 MG TAB (ELIQUIS) PO SCH ×2 (08:36→20:30)
[2019-05-20] MEDS: POTASSIUM CHLORIDE 10 MEQ SR TABLET PO SCH ×2 (08:36→20:30)
[2019-05-20] MEDS: PANTOPRAZOLE 40MG TAB (PROTONIX) PO SCH (08:36)
[2019-05-20 14:00] VITALS: BP 124/59
[2019-05-20] MEDS: DIAPER RELIEF PASTE (DESITIN) 60GM TOP PRN ×2 (16:59→20:32)
--- NOTE | 2019-05-20 17:44 | IPNPDOC ---
Subjective Date Seen The patient was seen on 05/20/19. Subjective Chief Complaint/HPI Nursing is concerned that Mr. Awad's buttocks and perineum are quite macerated. He still having frequent loose stools, although a GI panel has ruled out any serious pathogens. Nursing is wondering whether he can have nystatin and Maalox in a paced to protect his skin. They also wonder whether he can have Imodium to slow down his frequent loose stools. The patient has no specific complaints, but when I ask him if he would like help with his raw skin he is very interested in this. Constitutional: Denies: Chills, Fever Pulmonary: Denies: Dyspnea, Cough Cardiovascular: Denies: Chest Pain, Palpitations Psych: Reports: Memory Issues Objective Physical Examination General Exam: Positive: Alert, Cooperative (resting in bed watching television when I entered the room), No Acute Distress Eye Exam: Positive: Conjunctiva & lids normal; Negative: Sclera icteric ENT Exam: Positive: Mucous membr. moist/pink Neck Exam: Positive: Supple; Negative: Lymphadenopathy Chest Exam: Positive: Clear to auscultation, Normal air movement Heart Exam: Positive: Rate Normal, Normal S1, Normal S2; Negative: Murmurs Abdomen Exam: Positive: Normal bowel sounds, Soft; Negative: Tenderness Extremity Exam: Positive: Normal pulses Skin Exam: Positive: Nl turgor and temperature Neuro Exam: Positive: Normal Tone Psych Exam: Positive: Mood NL; Negative: Oriented x 3 (oriented to person only) Assessment /Plan Problems (1) Diarrhea Discussed With: Nurse, Patient Problem Text: Review discharging confirmed that there is no pathologic bacteria noted. I prescribed Imodium to slow down the frequent bowel movements. This should help with the moisture issue. (2) Maceration of skin Status: Acute Problem Text: I prescribed nystatin powder and Maalox. Nurses may mix these in a paste and apply under the Desitin. This should help calm down his macerated skin and provide some barrier from the wetness related to diarrhea and urine. (3) Physical debility Status: Chronic Problem Text: continue with pursuing Rehab placement. patient and agreeable. PFS aware and managing (4) GERD (gastroesophageal reflux disease) Status: Chronic Problem Text: will resume Pantoprazole 40 mg po daily. Currently on Pantoprazole 40 mg IV q 12 hrs. consider gastro consult given epigastric pain (5) Diastolic CHF Status: Chronic Problem Text: follows with Dr. Dacosta, cardiology. on entresto. monitor I/O. Appears well compensated. (6) Paroxysmal A-fib Status: Chronic Response to Treatment: Stable Problem Text: anti-coagulated with Eliquis (7) CAD (coronary artery disease) Status: Chronic Response to Treatment: Stable (8) Hyperlipemia Status: Chronic Response to Treatment: Stable (9) HTN (hypertension) Status: Chronic Response to Treatment: Stable (10) Sick sinus syndrome Status: Chronic Response to Treatment: Stable Problem Text: pacemaker (11) Hypothyroid Status: Chronic (12) Sepsis Status: Resolved Response to Treatment: Improving Problem Text: Zosyn was discontinued on 05/19/19. 05/18/2019: WBC stable. D#3 Pip/Lucio. GI panel negative. Vanco DC'd after 3 days of tx. 05/17/19: WBC down to 10,000. CXR negative. afebrile. DAY #2 Pip/lucio. Bl cxs with no growth. respiratory virus panel negative. stool cxs pending repeat CXR today. WBC 19,000. afebrile. Repeat lactic acid remained elevated. Plan/VTE VTE Prophylaxis Ordered?: Yes (Anuradha) VS, I&O, 24H, Fishbone Vital Signs/I&O Vital Signs Date Time Temp Pulse Resp B/P (MAP) Pulse Ox O2 Delivery O2 Flow Rate FiO2 05/20/19 14:00 98.6 72 16 124/59 (80) 97 05/15/19 10:30 Room Air I&O- Last 24 Hours up to 6 AM 05/20/19 06:00 Intake Total 800 ml Balance 800 ml Laboratory Data 24H LABS Laboratory Tests 2 05/20/19 07:15: Immature Granulocyte % (Auto) 0.3, White Blood Count 9.8, Red Blood Count 4.50, Hemoglobin 13.6, Hematocrit 41.8L, Mean Corpuscular Volume 92.9, Mean Corpuscular Hemoglobin 30.2, Mean Corpuscular Hemoglobin Concent 32.5, Red Cell Distribution Width 14.6H, Platelet Count 230, Neutrophils (%) (Auto) 75.5H, Lymphocytes (%) (Auto) 15.1L, Monocytes (%) (Auto) 6.4H, Eosinophils (%) (Auto) 2.2, Basophils (%) (Auto) 0.5, Neutrophils # (Auto) 7.4, Lymphocytes # (Auto) 1.5, Monocytes # (Auto) 0.6, Eosinophils # (Auto) 0.2, Basophils # (Auto) 0.1, Nucleated Red Blood Cells % (auto) 0.0, Anion Gap 6L, Glomerular Filtration Rate > 60.0, Blood Urea Nitrogen 14, Creatinine 1.14, Sodium Level 142, Potassium Level 3.4L, Chloride Level 111H, Carbon Dioxide Level 25, Calcium Level 8.3L, Aspartate Amino Transf (AST/SGOT) 26, Alanine Aminotransferase (ALT/SGPT) 23, Alkaline Phosphatase 71, Total Bilirubin 0.6, Total Protein 6.0L, Albumin 2.3L, Albumin/Globulin Ratio 0.62L CBC/BMP Laboratory Tests 05/20/19 07:15 Red Blood Count 4.50, Mean Corpuscular Volume 92.9, Mean Corpuscular Hemoglobin 30.2, Mean Corpuscular Hemoglobin Concent 32.5, Red Cell Distribution Width 14.6 H, Neutrophils (%) (Auto) 75.5 H, Lymphocytes (%) (Auto) 15.1 L, Monocytes (%) (Auto) 6.4 H, Eosinophils (%) (Auto) 2.2, Basophils (%) (Auto) 0.5, Neutrophils # (Auto) 7.4, Lymphocytes # (Auto) 1.5, Monocytes # (Auto) 0.6, Eosinophils # (Auto) 0.2, Basophils # (Auto) 0.1, Calcium Level 8.3 L, Aspartate Amino Transf (AST/SGOT) 26, Alanine Aminotransferase (ALT/SGPT) 23, Alkaline Phosphatase 71, Total Bilirubin 0.6, Total Protein 6.0 L, Albumin 2.3 L Microbiology Microbiology 05/17/19 Gastrointestinal Tract Panel (PCR) - Final, Complete 05/15/19 Respiratory Virus Panel (PCR) (ISABELL) - Final, Complete 05/15/19 Urine Culture - Final, Complete 05/15/19 Blood Culture - Final, Complete NO GROWTH AFTER 5 DAYS 05/15/19 Blood Culture - Final, Complete NO GROWTH AFTER 5 DAYS Douglas Saravia MD May 20, 2019 17:44
[2019-05-20] MEDS: ENTRESTO 24-26MG TABLET (SACUBITRIL/VALSARTAN) PO SCH (20:30)
[2019-05-20] MEDS: ROSUVASTATIN 10 MG TAB (CRESTOR) PO SCH (20:30)
[2019-05-20 22:00] VITALS: BP 120/67
[2019-05-20] MEDS: LOPERAMIDE 2 MG CAP PO PRN (22:54)
[2019-05-20] MEDS: MAALOX 30 ML SUSP *UDC XX PRN (22:54)
[2019-05-21] MEDS: ACETAMINOPHEN TAB 650MG DOSE (2X325MG) PO PRN ×3 (03:20→20:47)
[2019-05-21] MEDS: LOPERAMIDE 2 MG CAP PO PRN ×3 (03:20→10:03)
[2019-05-21] MEDS: LEVOTHYROXINE 25MCG TABLET (0.025MG) PO SCH (05:51)
[2019-05-21 06:00] VITALS: BP 152/89
[2019-05-21 07:41] LABS: BASO # 0.1 10^3/uL (0.0-0.2); BASO % 0.5 % (0.0-1.0); EOS # 0.2 10^3/uL (0.0-0.5); EOS % 2.2 % (0.0-3.0); HEMATOCRIT 40.7 % (42.0-52.0); HEMOGLOBIN 13.4 g/dl (13.5-17.5); LYMPH # 1.9 10^3/uL (1.5-5.0); LYMPH % 19.1 % (24.0-44.0); MEAN CORPUSCULAR HEMOGLOBIN 30.8 pg (27.0-33.0); MEAN CORPUSCULAR HGB CONC 32.9 g/dl (32.0-36.5); MEAN CORPUSCULAR VOLUME 93.6 fl (80.0-96.0); MONO # 0.7 10^3/uL (0.0-0.8); NEUTROPHILS # 7.1 10^3/uL (1.5-8.5); NEUTROPHILS % 70.8 % (36.0-66.0); PLATELET COUNT, AUTOMATED 229 10^3/uL (150-450); RED BLOOD COUNT 4.35 10^6/uL (4.30-6.10)
[2019-05-21 08:00] LABS: ALBUMIN 2.2 GM/DL (3.2-5.2); ALT/SGPT 21 U/L (12-78); BILIRUBIN,TOTAL 0.7 MG/DL (0.2-1.0); BLOOD UREA NITROGEN 14 MG/DL (7-18); CALCIUM LEVEL 7.8 MG/DL (8.8-10.2); CARBON DIOXIDE LEVEL 26 MEQ/L (21-32); CHLORIDE LEVEL 109 MEQ/L (98-107); CREATININE FOR GFR 1.09 MG/DL (0.70-1.30); GLOMERULAR FILTRATION RATE > 60.0 (>35); GLUCOSE, FASTING 79 MG/DL (70-100); POTASSIUM SERUM 3.1 MEQ/L (3.5-5.1); SODIUM LEVEL 140 MEQ/L (136-145); TOTAL PROTEIN 5.8 GM/DL (6.4-8.2)
[2019-05-21] MEDS: ASPIRIN 81 MG ENTERIC TAB PO SCH (09:04)
[2019-05-21] MEDS: VITAMIN D 1,000 INTERNATIONAL UNITS TABLET PO SCH (09:04)
[2019-05-21] MEDS: POTASSIUM CHLORIDE 10 MEQ SR TABLET PO SCH ×2 (09:04→20:48)
[2019-05-21] MEDS: CYANOCOBALAMIN 500 MCG TAB PO SCH (09:04)
[2019-05-21] MEDS: PANTOPRAZOLE 40MG TAB (PROTONIX) PO SCH (09:05)
[2019-05-21] MEDS: METOPROLOL SUCC (TopROL XL) 50MG **XL** TAB PO SCH (09:05)
[2019-05-21] MEDS: APIXABAN 2.5 MG TAB (ELIQUIS) PO SCH ×2 (09:05→20:48)
[2019-05-21] MEDS: SERTRALINE HCL 50 MG TAB PO SCH (09:05)
[2019-05-21] MEDS: AMIODARONE 200 MG TAB (PACERONE) PO SCH (09:05)
[2019-05-21] MEDS: MAALOX 30 ML SUSP *UDC XX PRN (13:25)
[2019-05-21 14:00] VITALS: BP 129/65
[2019-05-21] MEDS: ROSUVASTATIN 10 MG TAB (CRESTOR) PO SCH (20:47)
[2019-05-21] MEDS: ENTRESTO 24-26MG TABLET (SACUBITRIL/VALSARTAN) PO SCH (20:48)
[2019-05-21] MEDS ORDERED: POTASSIUM CHLORIDE 10 MEQ SR TABLET PO ONE (21:15)
[2019-05-21 22:00] VITALS: BP 122/72
--- NOTE | 2019-05-21 22:18 | IPNPDOC ---
Subjective Date Seen The patient was seen on 05/21/19. Subjective Chief Complaint/HPI Mr. Awad's macerated buttocks are doing better per nursing. He also has not had the frequent stools today since he was given the Imodium. Strangely enough his potassium dropped AFTER his diarrhea stopped. General: Reports: Normal Appetite Skin: Reports: Breakdown Psych: Reports: Memory Issues Objective Physical Examination General Exam: Positive: Alert, Cooperative (resting in bed watching television when I entered the room), No Acute Distress Eye Exam: Positive: Conjunctiva & lids normal; Negative: Sclera icteric ENT Exam: Positive: Mucous membr. moist/pink Neck Exam: Positive: Supple; Negative: Lymphadenopathy Chest Exam: Positive: Clear to auscultation, Normal air movement Heart Exam: Positive: Rate Normal, Normal S1, Normal S2; Negative: Murmurs Abdomen Exam: Positive: Normal bowel sounds, Soft; Negative: Tenderness Extremity Exam: Positive: Normal pulses Skin Exam: Positive: Nl turgor and temperature Neuro Exam: Negative: Normal Speech (speech is delayed and reyes is off, but the content is reasonably for basic conversation) Psych Exam: Positive: Mood NL; Negative: Oriented x 3 (oriented to person only) Assessment /Plan Problems (1) Hypokalemia Status: Acute Problem Text: He is already on 10 mEq twice daily of supplemental potassium. I increased this to 20 mEq twice daily starting tomorrow. We'll monitor. Once his diarrhea is completely resolved we may need to step this back. (2) Physical debility Status: Chronic Problem Text: Continue with pursuing Rehab placement. patient and agreeable. PFS aware and managing (3) Maceration of skin Status: Acute Problem Text: The mixture of nystatin powder and Maalox along with Desitin as a barrier cream is helping to heal his macerated skin. Continue. (4) Diarrhea Status: Acute Response to Treatment: Improving Discussed With: Nurse, Patient Problem Text: The Imodium seems to have stopped his diarrhea. We'll leave this on as a prn. (5) GERD (gastroesophageal reflux disease) Status: Chronic Problem Text: will resume Pantoprazole 40 mg po daily. Currently on Pantoprazole 40 mg IV q 12 hrs. consider gastro consult given epigastric pain (6) Diastolic CHF Status: Chronic Problem Text: follows with Dr. Dacosta, cardiology. on entresto. monitor I/O. Appears well compensated. (7) Paroxysmal A-fib Status: Chronic Response to Treatment: Stable Problem Text: anti-coagulated with Eliquis (8) CAD (coronary artery disease) Status: Chronic Response to Treatment: Stable (9) Hyperlipemia Status: Chronic Response to Treatment: Stable (10) HTN (hypertension) Status: Chronic Response to Treatment: Stable (11) Sick sinus syndrome Status: Chronic Response to Treatment: Stable Problem Text: pacemaker (12) Hypothyroid Status: Chronic (13) Sepsis Status: Resolved Response to Treatment: Improving Problem Text: Zosyn was discontinued on 05/19/19. 05/18/2019: WBC stable. D#3 Pip/Lucio. GI panel negative. Vanco DC'd after 3 days of tx. 05/17/19: WBC down to 10,000. CXR negative. afebrile. DAY #2 Pip/lucio. Bl cxs with no growth. respiratory virus panel negative. stool cxs pending repeat CXR today. WBC 19,000. afebrile. Repeat lactic acid remained elevated. Plan/VTE VTE Prophylaxis Ordered?: Yes (Eliquis) VS, I&O, 24H, Fishbone Vital Signs/I&O Vital Signs Date Time Temp Pulse Resp B/P (MAP) Pulse Ox O2 Delivery O2 Flow Rate FiO2 05/21/19 14:00 96.8 75 20 129/65 (86) 96 05/15/19 10:30 Room Air I&O- Last 24 Hours up to 6 AM 05/21/19 05:59 Intake Total 1100 ml Output Total 0 ml Balance 1100 ml Laboratory Data 24H LABS Laboratory Tests 2 05/21/19 07:14: Immature Granulocyte % (Auto) 0.4, White Blood Count 10.0, Red Blood Count 4.35, Hemoglobin 13.4L, Hematocrit 40.7L, Mean Corpuscular Volume 93.6, Mean Corpuscular Hemoglobin 30.8, Mean Corpuscular Hemoglobin Concent 32.9, Red Cell Distribution Width 14.2, Platelet Count 229, Neutrophils (%) (Auto) 70.8H, Lymphocytes (%) (Auto) 19.1L, Monocytes (%) (Auto) 7.0H, Eosinophils (%) (Auto) 2.2, Basophils (%) (Auto) 0.5, Neutrophils # (Auto) 7.1, Lymphocytes # (Auto) 1.9, Monocytes # (Auto) 0.7, Eosinophils # (Auto) 0.2, Basophils # (Auto) 0.1, Nucleated Red Blood Cells % (auto) 0.0, Anion Gap 5L, Glomerular Filtration Rate > 60.0, Blood Urea Nitrogen 14, Creatinine 1.09, Sodium Level 140, Potassium Level 3.1L, Chloride Level 109H, Carbon Dioxide Level 26, Calcium Level 7.8L, Aspartate Amino Transf (AST/SGOT) 19, Alanine Aminotransferase (ALT/SGPT) 21, Alkaline Phosphatase 74, Total Bilirubin 0.7, Total Protein 5.8L, Albumin 2.2L, Albumin/Globulin Ratio 0.61L CBC/BMP Laboratory Tests 05/21/19 07:14 Red Blood Count 4.35, Mean Corpuscular Volume 93.6, Mean Corpuscular Hemoglobin 30.8, Mean Corpuscular Hemoglobin Concent 32.9, Red Cell Distribution Width 14.2 , Neutrophils (%) (Auto) 70.8 H, Lymphocytes (%) (Auto) 19.1 L, Monocytes (%) (Auto) 7.0 H, Eosinophils (%) (Auto) 2.2, Basophils (%) (Auto) 0.5, Neutrophils # (Auto) 7.1, Lymphocytes # (Auto) 1.9, Monocytes # (Auto) 0.7, Eosinophils # (Auto) 0.2, Basophils # (Auto) 0.1, Calcium Level 7.8 L, Aspartate Amino Transf (AST/SGOT) 19, Alanine Aminotransferase (ALT/SGPT) 21, Alkaline Phosphatase 74, Total Bilirubin 0.7, Total Protein 5.8 L, Albumin 2.2 L Microbiology Microbiology 05/17/19 Gastrointestinal Tract Panel (PCR) - Final, Complete 05/15/19 Respiratory Virus Panel (PCR) (ISABELL) - Final, Complete 05/15/19 Urine Culture - Final, Complete 05/15/19 Blood Culture - Final, Complete NO GROWTH AFTER 5 DAYS 05/15/19 Blood Culture - Final, Complete NO GROWTH AFTER 5 DAYS Douglas Saravia MD May 21, 2019 22:18
[2019-05-22] MEDS: LEVOTHYROXINE 25MCG TABLET (0.025MG) PO SCH (05:03)
[2019-05-22] MEDS: ACETAMINOPHEN TAB 650MG DOSE (2X325MG) PO PRN ×2 (05:03→20:44)
[2019-05-22 06:00] VITALS: BP 163/91
[2019-05-22] MEDS: LOPERAMIDE 2 MG CAP PO PRN ×2 (06:25→20:45)
[2019-05-22 06:27] LABS: BASO % 0.5 % (0.0-1.0); EOS # 0.2 10^3/uL (0.0-0.5); EOS % 2.6 % (0.0-3.0); HEMOGLOBIN 13.6 g/dl (13.5-17.5); LYMPH # 1.9 10^3/uL (1.5-5.0); LYMPH % 21.9 % (24.0-44.0); MEAN CORPUSCULAR HEMOGLOBIN 30.6 pg (27.0-33.0); MEAN CORPUSCULAR HGB CONC 33.2 g/dl (32.0-36.5); MEAN CORPUSCULAR VOLUME 92.3 fl (80.0-96.0); MONO # 0.7 10^3/uL (0.0-0.8); NEUTROPHILS # 5.7 10^3/uL (1.5-8.5); NEUTROPHILS % 66.5 % (36.0-66.0); PLATELET COUNT, AUTOMATED 222 10^3/uL (150-450); RED BLOOD COUNT 4.44 10^6/uL (4.30-6.10); WHITE BLOOD COUNT 8.5 10^3/uL (4.0-10.0)
[2019-05-22 06:53] LABS: ALBUMIN 2.3 GM/DL (3.2-5.2); ALT/SGPT 27 U/L (12-78); BILIRUBIN,TOTAL 0.4 MG/DL (0.2-1.0); BLOOD UREA NITROGEN 8 MG/DL (7-18); CARBON DIOXIDE LEVEL 26 MEQ/L (21-32); CHLORIDE LEVEL 111 MEQ/L (98-107); CREATININE FOR GFR 1.03 MG/DL (0.70-1.30); GLOMERULAR FILTRATION RATE > 60.0 (>35); GLUCOSE, FASTING 87 MG/DL (70-100); POTASSIUM SERUM 3.2 MEQ/L (3.5-5.1); SODIUM LEVEL 144 MEQ/L (136-145); TOTAL PROTEIN 6.4 GM/DL (6.4-8.2)
[2019-05-22] MEDS ORDERED: POTASSIUM CHLORIDE 10 MEQ SR TABLET PO SCH (09:00)
[2019-05-22] MEDS: ASPIRIN 81 MG ENTERIC TAB PO SCH (09:53)
[2019-05-22] MEDS: APIXABAN 2.5 MG TAB (ELIQUIS) PO SCH ×2 (09:53→20:45)
[2019-05-22] MEDS: SERTRALINE HCL 50 MG TAB PO SCH (09:54)
[2019-05-22] MEDS: CYANOCOBALAMIN 500 MCG TAB PO SCH (09:54)
[2019-05-22] MEDS: POTASSIUM CHLORIDE 10 MEQ SR TABLET PO SCH ×2 (09:54→20:45)
[2019-05-22] MEDS: VITAMIN D 1,000 INTERNATIONAL UNITS TABLET PO SCH (09:54)
[2019-05-22] MEDS: AMIODARONE 200 MG TAB (PACERONE) PO SCH (09:55)
[2019-05-22] MEDS: METOPROLOL SUCC (TopROL XL) 50MG **XL** TAB PO SCH (09:55)
[2019-05-22] MEDS: PANTOPRAZOLE 40MG TAB (PROTONIX) PO SCH (09:55)
--- NOTE | 2019-05-22 10:24 | DSES ---
[facility]ACILITY (SNF) SUMMARY DATE OF ADMISSION: 05/15/2019 DATE OF SNF: 05/22/19 PRIMARY CARE PROVIDER: Wyatt Sun MD Attending today is Shad Noel MD. HISTORY: This is an 78-year-old male patient who resides at home with his who has a history of coronary artery disease, congestive heart failure, sick sinus syndrome status post automatic implantable cardioverter-defibrillator (AICD) and permanent pacemaker, who presented to [facility] Emergency Room by emergency medical services (EMS) after having increased mental status, as well as shortness of breath. He had not been eating or drinking and not sleeping well prior to EMS being called. On presentation, he was found to be septic. He was admitted to the hospital with a white blood cell count of 18,000, lactic acid of 2.2 rising to 2.5, blood urea nitrogen (BUN) of 42, creatinine of 1.8 with tachycardia. He was started on broad-spectrum antibiotics with Zosyn and vancomycin, as well as intravenous (IV) fluids. Blood cultures, urinary culture, and respiratory panel were obtained. Respiratory panel was negative. Urine and blood cultures were also both negative. The patient also had some loose stools and, therefore, a GI panel was obtained, which was subsequently negative, as well. The patient was continued on Zosyn. Vancomycin was discontinued after 3 days of treatment, although an etiology source of infection was not fully identified. The patient did begin to show some clinical signs of improvement. His white blood cell count has steadily improved. The patient did have some diarrhea. Was noted to have maceration of bilateral buttocks and, therefore, was started on nystatin powder, Maalox mix placed under a Desitin coat for healing. This has shown some improvement in the wound. He also had significant physical debilitation, and his is requesting and agreeable to placement, as she is no longer able to continue to manage him independently at home. His discharge diagnoses include sepsis, physical debility, hypokalemia, maceration of bilateral buttocks, diarrhea, gastroesophageal reflux disease, chronic diastolic congestive heart failure, paroxysmal atrial fibrillation, coronary artery disease, dementia, hyperlipidemia, sick sinus syndrome, hypothyroidism. DISCHARGE MEDICATION AND PLAN: Will be summarized at time of discharge from the hospital. ROMI
[2019-05-22 14:00] VITALS: BP 116/72
[2019-05-22] MEDS: ENTRESTO 24-26MG TABLET (SACUBITRIL/VALSARTAN) PO SCH (20:44)
[2019-05-22] MEDS: NYSTATIN 100,000 UNITS/GM TOPICAL PWD 15 GM TOP PRN (20:45)
[2019-05-22] MEDS: ROSUVASTATIN 10 MG TAB (CRESTOR) PO SCH (20:45)
[2019-05-22] MEDS: DIAPER RELIEF PASTE (DESITIN) 60GM TOP PRN (20:45)
[2019-05-23] MEDS: LEVOTHYROXINE 25MCG TABLET (0.025MG) PO SCH (05:25)
[2019-05-23 06:00] VITALS: BP 125/69
[2019-05-23 06:36] LABS: BASO # 0.1 10^3/uL (0.0-0.2); BASO % 0.6 % (0.0-1.0); EOS # 0.2 10^3/uL (0.0-0.5); EOS % 2.7 % (0.0-3.0); HEMATOCRIT 40.8 % (42.0-52.0); HEMOGLOBIN 13.3 g/dl (13.5-17.5); LYMPH # 1.9 10^3/uL (1.5-5.0); LYMPH % 21.8 % (24.0-44.0); MEAN CORPUSCULAR HEMOGLOBIN 30.6 pg (27.0-33.0); MEAN CORPUSCULAR HGB CONC 32.6 g/dl (32.0-36.5); MEAN CORPUSCULAR VOLUME 93.8 fl (80.0-96.0); MONO # 0.7 10^3/uL (0.0-0.8); MONO % 8.3 % (0.0-5.0); NEUTROPHILS # 5.7 10^3/uL (1.5-8.5); NEUTROPHILS % 66.1 % (36.0-66.0); PLATELET COUNT, AUTOMATED 221 10^3/uL (150-450); RED BLOOD COUNT 4.35 10^6/uL (4.30-6.10); WHITE BLOOD COUNT 8.6 10^3/uL (4.0-10.0)
[2019-05-23 07:10] LABS: ALBUMIN 2.2 GM/DL (3.2-5.2); ALT/SGPT 32 U/L (12-78); BILIRUBIN,TOTAL 0.7 MG/DL (0.2-1.0); BLOOD UREA NITROGEN 12 MG/DL (7-18); CARBON DIOXIDE LEVEL 26 MEQ/L (21-32); CHLORIDE LEVEL 110 MEQ/L (98-107); CREATININE FOR GFR 1.19 MG/DL (0.70-1.30); GLOMERULAR FILTRATION RATE > 60.0 (>35); GLUCOSE, FASTING 87 MG/DL (70-100); POTASSIUM SERUM 3.9 MEQ/L (3.5-5.1); SODIUM LEVEL 143 MEQ/L (136-145); TOTAL PROTEIN 5.9 GM/DL (6.4-8.2)
[2019-05-23] MEDS: APIXABAN 2.5 MG TAB (ELIQUIS) PO SCH ×2 (09:07→20:29)
[2019-05-23] MEDS: AMIODARONE 200 MG TAB (PACERONE) PO SCH (09:07)
[2019-05-23] MEDS: SERTRALINE HCL 50 MG TAB PO SCH (09:07)
[2019-05-23] MEDS: METOPROLOL SUCC (TopROL XL) 50MG **XL** TAB PO SCH (09:07)
[2019-05-23] MEDS: ASPIRIN 81 MG ENTERIC TAB PO SCH (09:07)
[2019-05-23] MEDS: VITAMIN D 1,000 INTERNATIONAL UNITS TABLET PO SCH (09:08)
[2019-05-23] MEDS: CYANOCOBALAMIN 500 MCG TAB PO SCH (09:08)
[2019-05-23] MEDS: NYSTATIN 100,000 UNITS/GM TOPICAL PWD 15 GM TOP PRN ×2 (09:08→22:29)
[2019-05-23] MEDS: PANTOPRAZOLE 40MG TAB (PROTONIX) PO SCH (09:08)
[2019-05-23] MEDS: POTASSIUM CHLORIDE 10 MEQ SR TABLET PO SCH ×2 (09:08→20:29)
[2019-05-23] MEDS: DIAPER RELIEF PASTE (DESITIN) 60GM TOP PRN ×2 (09:09→22:30)
[2019-05-23] MEDS: ROSUVASTATIN 10 MG TAB (CRESTOR) PO SCH (20:29)
[2019-05-23] MEDS: LOPERAMIDE 2 MG CAP PO PRN (20:29)
[2019-05-23] MEDS: ENTRESTO 24-26MG TABLET (SACUBITRIL/VALSARTAN) PO SCH (20:29)
[2019-05-23] MEDS: ACETAMINOPHEN TAB 650MG DOSE (2X325MG) PO PRN (20:30)
[2019-05-23] MEDS: MAALOX 30 ML SUSP *UDC XX PRN (22:30)
[2019-05-24] MEDS: LEVOTHYROXINE 25MCG TABLET (0.025MG) PO SCH (05:05)
[2019-05-24] MEDS: ACETAMINOPHEN TAB 650MG DOSE (2X325MG) PO PRN ×2 (05:06→20:00)
[2019-05-24 06:00] VITALS: BP_SYST 129; BP_SYST 149; BP_DIAS 74; BP_DIAS 87
[2019-05-24 06:43] LABS: HEMATOCRIT 39.7 % (42.0-52.0); MEAN CORPUSCULAR HEMOGLOBIN 30.7 pg (27.0-33.0); MEAN CORPUSCULAR HGB CONC 32.7 g/dl (32.0-36.5); MEAN CORPUSCULAR VOLUME 93.6 fl (80.0-96.0); PLATELET COUNT, AUTOMATED 220 10^3/uL (150-450); RED BLOOD COUNT 4.24 10^6/uL (4.30-6.10); WHITE BLOOD COUNT 7.8 10^3/uL (4.0-10.0)
[2019-05-24] MEDS: PANTOPRAZOLE 40MG TAB (PROTONIX) PO SCH (09:44)
[2019-05-24] MEDS: AMIODARONE 200 MG TAB (PACERONE) PO SCH (09:44)
[2019-05-24] MEDS: METOPROLOL SUCC (TopROL XL) 50MG **XL** TAB PO SCH (09:46)
[2019-05-24] MEDS: ASPIRIN 81 MG ENTERIC TAB PO SCH (09:46)
[2019-05-24] MEDS: APIXABAN 2.5 MG TAB (ELIQUIS) PO SCH ×2 (09:47→20:01)
[2019-05-24] MEDS: SERTRALINE HCL 50 MG TAB PO SCH (09:47)
[2019-05-24] MEDS: POTASSIUM CHLORIDE 10 MEQ SR TABLET PO SCH ×2 (09:47→20:01)
[2019-05-24] MEDS: CYANOCOBALAMIN 500 MCG TAB PO SCH (09:47)
[2019-05-24] MEDS: VITAMIN D 1,000 INTERNATIONAL UNITS TABLET PO SCH (09:47)
[2019-05-24] MEDS: ENTRESTO 24-26MG TABLET (SACUBITRIL/VALSARTAN) PO SCH (20:00)
[2019-05-24] MEDS: ROSUVASTATIN 10 MG TAB (CRESTOR) PO SCH (20:01)
[2019-05-24 22:00] VITALS: BP 131/48
[2019-05-25] MEDS: LEVOTHYROXINE 25MCG TABLET (0.025MG) PO SCH (05:40)
[2019-05-25] MEDS: LOPERAMIDE 2 MG CAP PO PRN (05:45)
[2019-05-25 06:00] VITALS: BP 121/59
[2019-05-25] MEDS: CYANOCOBALAMIN 500 MCG TAB PO SCH (09:31)
[2019-05-25] MEDS: AMIODARONE 200 MG TAB (PACERONE) PO SCH (09:31)
[2019-05-25] MEDS: VITAMIN D 1,000 INTERNATIONAL UNITS TABLET PO SCH (09:32)
[2019-05-25] MEDS: METOPROLOL SUCC (TopROL XL) 50MG **XL** TAB PO SCH (09:32)
[2019-05-25] MEDS: PANTOPRAZOLE 40MG TAB (PROTONIX) PO SCH (09:32)
[2019-05-25] MEDS: ASPIRIN 81 MG ENTERIC TAB PO SCH (09:32)
[2019-05-25] MEDS: SERTRALINE HCL 50 MG TAB PO SCH (09:32)
[2019-05-25] MEDS: POTASSIUM CHLORIDE 10 MEQ SR TABLET PO SCH ×2 (09:32→20:48)
[2019-05-25] MEDS: APIXABAN 2.5 MG TAB (ELIQUIS) PO SCH ×2 (09:32→20:47)
[2019-05-25] MEDS: ENTRESTO 24-26MG TABLET (SACUBITRIL/VALSARTAN) PO SCH (20:47)
[2019-05-25] MEDS: ACETAMINOPHEN TAB 650MG DOSE (2X325MG) PO PRN (20:48)
[2019-05-25] MEDS: ROSUVASTATIN 10 MG TAB (CRESTOR) PO SCH (20:48)
[2019-05-26] MEDS: LEVOTHYROXINE 25MCG TABLET (0.025MG) PO SCH (05:45)
[2019-05-26 06:00] VITALS: BP 152/93
[2019-05-26] MEDS: SERTRALINE HCL 50 MG TAB PO SCH (09:16)
[2019-05-26] MEDS: POTASSIUM CHLORIDE 10 MEQ SR TABLET PO SCH (09:16)
[2019-05-26] MEDS: CYANOCOBALAMIN 500 MCG TAB PO SCH (09:16)
[2019-05-26 09:17] VITALS: BP 152/93
[2019-05-26] MEDS: PANTOPRAZOLE 40MG TAB (PROTONIX) PO SCH (09:17)
[2019-05-26] MEDS: APIXABAN 2.5 MG TAB (ELIQUIS) PO SCH (09:17)
[2019-05-26] MEDS: AMIODARONE 200 MG TAB (PACERONE) PO SCH (09:17)
[2019-05-26] MEDS: METOPROLOL SUCC (TopROL XL) 50MG **XL** TAB PO SCH (09:17)
[2019-05-26] MEDS: ASPIRIN 81 MG ENTERIC TAB PO SCH (09:17)
[2019-05-26] MEDS: VITAMIN D 1,000 INTERNATIONAL UNITS TABLET PO SCH (09:17)
[2019-05-26] MEDS ORDERED: KLOR10TA76 PO (09:52)
[2019-05-26] MEDS ORDERED: LOPE2CA PO (09:52)
[2019-05-26] MEDS ORDERED: NYAM10003 TOP (09:52)
--- NOTE | 2019-05-26 17:39 | DSES ---
DATE OF ADMISSION: 05/15/2019 DATE OF DISCHARGE: 05/26/2019 Patient is being discharged to [facility] in [place], [place]. His discharge diagnoses remain the same. His discharge medications are as follows: - loperamide 2 mg daily as needed for diarrhea - Nystatin powder topically twice a day as needed for rash in abdominal folds - potassium chloride 40 mEq by mouth twice a day - acetaminophen 500 mg daily - amiodarone 200 mg daily - Eliquis 5 mg by mouth twice a day - aspirin 81 mg daily - vitamin D 1000 units daily - vitamin B12 1000 mcg daily - levothyroxine 25 mcg daily - melatonin 10 mg by mouth nightly - metoprolol 50 mg daily - Protonix 40 mg daily - rosuvastatin 10 mg by mouth at bedtime - sertraline 150 mg daily DISCHARGE PLAN: Will be to follow up with his primary care provider (PCP) upon discharge from the rehabilitation facility. His activity should be as tolerated. His diet is no added salt.
== END 2019-05-26 11:45 | DRG 871 ==
LOC: M ED 10:17 → M ED INP 15:51 → M PCU 18:16 → M MS5PR 05-19 03:35
PROVIDERS: ADMIT Internal Medicine; ATTEND Family Medicine
DX: A41.9 Sepsis, unspecified organism (principal); K85.90 Acute pancreatitis without necrosis or infection, unspecified; I50.32 Chronic diastolic (congestive) heart failure; F03.91 Unspecified dementia, unspecified severity, with behavioral disturbance; Z79.899 Other long term (current) drug therapy; Z79.82 Long term (current) use of aspirin; I25.10 Atherosclerotic heart disease of native coronary artery without angina pectoris; Z95.0 Presence of cardiac pacemaker; E87.6 Hypokalemia; R19.7 Diarrhea, unspecified; K21.9 Gastro-esophageal reflux disease without esophagitis; I48.0 Paroxysmal atrial fibrillation; E78.5 Hyperlipidemia, unspecified; E03.9 Hypothyroidism, unspecified; I49.5 Sick sinus syndrome; Z88.5 Allergy status to narcotic agent; N40.0 Benign prostatic hyperplasia without lower urinary tract symptoms; J45.909 Unspecified asthma, uncomplicated; M19.90 Unspecified osteoarthritis, unspecified site; I11.0 Hypertensive heart disease with heart failure; F32.9 Major depressive disorder, single episode, unspecified

== ENCOUNTER → 2019-08-05 | Outpatient (CLI) | payer MEDICARE ==
[~2019-08-05] MED LIST changes: +ACET500T15 PO; +D31000CA4 PO; +ENTR1TAB PO; +KLOR10TA76 PO; +LEVO25TA5 PO; +LOPE2CA PO; +NYAM10003 TOP; +POTA10TA14 PO; +ROSU10TA6 PO; +VITA-144 PO
[2019-08-05 18:08] LABS: BASO % 0.5 % (0.0-1.0); EOS # 0.3 10^3/uL (0.0-0.5); EOS % 4.2 % (0.0-3.0); HEMATOCRIT 49.3 % (42.0-52.0); LYMPH # 1.2 10^3/uL (1.5-5.0); LYMPH % 16.1 % (24.0-44.0); MEAN CORPUSCULAR HEMOGLOBIN 29.4 pg (27.0-33.0); MEAN CORPUSCULAR HGB CONC 30.4 g/dl (32.0-36.5); MEAN CORPUSCULAR VOLUME 96.5 fl (80.0-96.0); MONO # 0.5 10^3/uL (0.0-0.8); MONO % 6.2 % (0.0-5.0); NEUTROPHILS # 5.3 10^3/uL (1.5-8.5); NEUTROPHILS % 72.3 % (36.0-66.0); PLATELET COUNT, AUTOMATED 263 10^3/uL (150-450); RED BLOOD COUNT 5.11 10^6/uL (4.30-6.10); WHITE BLOOD COUNT 7.4 10^3/uL (4.0-10.0)
[2019-08-05 18:36] LABS: ALBUMIN 3.4 GM/DL (3.2-5.2); BILIRUBIN,TOTAL 0.6 MG/DL (0.2-1.0); CALCIUM LEVEL 8.7 MG/DL (8.8-10.2); CREATININE FOR GFR 1.34 MG/DL (0.70-1.30); GLOMERULAR FILTRATION RATE 54.5 (>35); POTASSIUM SERUM 4.6 MEQ/L (3.5-5.1); THYROID STIMULATING HORMONE 3.23 uIU/ML (0.358-3.740); TOTAL PROTEIN 7.3 GM/DL (6.4-8.2)
== END ==
LOC: M LABDRWAD 10:58
PROVIDERS: ATTEND Internal Medicine Cardiovascular Disease
DX: I47.2 Ventricular tachycardia (principal); I48.0 Paroxysmal atrial fibrillation; E03.2 Hypothyroidism due to medicaments and other exogenous substances

== ENCOUNTER → 2019-09-27 | Outpatient (REF) | payer MEDICARE | LOC: M LAB REF 17:15 | PROVIDERS: ATTEND Internal Medicine Gastroenterology | DX: R19.7 Diarrhea, unspecified (principal) ==

== ENCOUNTER → 2020-01-16 | Outpatient (REF) | payer MEDICARE ==
[2020-01-16 14:45] LABS: HEMATOCRIT 50.6 % (42.0-52.0); HEMOGLOBIN 15.6 g/dl (13.5-17.5); MEAN CORPUSCULAR HEMOGLOBIN 29.9 pg (27.0-33.0); MEAN CORPUSCULAR HGB CONC 30.8 g/dl (32.0-36.5); MEAN CORPUSCULAR VOLUME 97.1 fl (80.0-96.0); PLATELET COUNT, AUTOMATED 285 10^3/uL (150-450); RED BLOOD COUNT 5.21 10^6/uL (4.30-6.10); WHITE BLOOD COUNT 9.4 10^3/uL (4.0-10.0)
[2020-01-16 14:50] LABS: ALBUMIN 3.5 GM/DL (3.2-5.2); BILIRUBIN,TOTAL 0.4 MG/DL (0.2-1.0); CALCIUM LEVEL 9.1 MG/DL (8.8-10.2); CHOLESTEROL RISK RATIO 6.277 (<5); CREATININE FOR GFR 1.31 MG/DL (0.70-1.30); FREE T4 1.03 NG/DL (0.76-1.46); GLOMERULAR FILTRATION RATE 55.9 (>35); THYROID STIMULATING HORMONE 4.61 uIU/ML (0.358-3.740); TOTAL PROTEIN 7.5 GM/DL (6.4-8.2)
[2020-01-16 14:59] LABS: HEMOGLOBIN A1c 5.7 %
== END ==
LOC: M SFHCADAM 10:01
PROVIDERS: ATTEND Family Medicine
DX: N18.3 Chronic kidney disease, stage 3 (moderate) (principal); I48.0 Paroxysmal atrial fibrillation; E03.9 Hypothyroidism, unspecified; E78.5 Hyperlipidemia, unspecified; E74.9 Disorder of carbohydrate metabolism, unspecified; Z79.899 Other long term (current) drug therapy
CPT/HCPCS: 80053; 80061; 83036; 84439; 84443; 85027; G0463

== ENCOUNTER 2020-02-16 12:08 | Emergency (ER) | payer MEDICARE ==
[~2020-02-16] VITALS: Ht 190.5 cm; Wt 104.5 kg
[2020-02-16] MEDS ORDERED: POTA1TAB23 (12:19)
[2020-02-16] MEDS ORDERED: BENA25CA4 PO (12:19)
[2020-02-16] MEDS ORDERED: ENTR1TAB (12:19)
[2020-02-16] MEDS ORDERED: NS 1,000 ML IV ONE (12:45)
[2020-02-16] MEDS ORDERED: ISOVUE-370 76% 100ML VIAL As Ordered ONE (12:58)
[2020-02-16 13:00] LABS: BASO # 0.1 10^3/uL (0.0-0.2); BASO % 0.6 % (0.0-1.0); EOS # 0.2 10^3/uL (0.0-0.5); EOS % 2.1 % (0.0-3.0); HEMATOCRIT 45.8 % (42.0-52.0); HEMOGLOBIN 14.4 g/dl (13.5-17.5); LYMPH # 1.1 10^3/uL (1.5-5.0); LYMPH % 11.2 % (24.0-44.0); MEAN CORPUSCULAR HGB CONC 31.4 g/dl (32.0-36.5); MEAN CORPUSCULAR VOLUME 95.4 fl (80.0-96.0); MONO # 0.8 10^3/uL (0.0-0.8); MONO % 8.1 % (0.0-5.0); NEUTROPHILS # 7.7 10^3/uL (1.5-8.5); NEUTROPHILS % 77.2 % (36.0-66.0); PLATELET COUNT, AUTOMATED 240 10^3/uL (150-450)
[2020-02-16 13:26] LABS: ALBUMIN 3.5 GM/DL (3.2-5.2); BILIRUBIN,DIRECT 0.2 MG/DL (0.0-0.2); BILIRUBIN,TOTAL 0.8 MG/DL (0.2-1.0)
--- NOTE | 2020-02-16 13:52 | REP ---
Clinical: Acute left lower quadrant pain and diarrhea. Technique: Axial contrast enhanced images from the lung bases to the pubic symphysis using 100 ml Isovue 370 intravenous contrast material. Coronal and sagittal re-formations obtained. Comparison: 05/15/2019. Findings: Lung bases demonstrate chronic changes. Liver, spleen, pancreas, bilateral adrenal glands are normal. The kidneys demonstrate age-related cortical thinning and scattered simple cysts along with mild symmetric chronic perinephric stranding. Evidence of prior cholecystectomy. The enteric system is without obstruction or acute inflammatory process. Few scattered colonic diverticula noted without acute diverticulitis. Pelvis demonstrates prostatomegaly and relatively normal bladder. Small fat containing inguinal hernias noted. No pelvic fluid or ascites. No free air. No adenopathy. Atherosclerotic changes to the aorta and vasculature without aneurysm or dissection. Musculoskeletal structures demonstrate degenerative changes without acute osseous abnormality. Impression: 1. No acute abdominopelvic pathology appreciated. 2. Age-related renal changes and simple renal cysts. 3. Few scattered colonic diverticula without acute diverticulitis. 4. No acute abdominopelvic pathology appreciated. No ascites, focal inflammatory stranding, or adenopathy. Electronically Signed by Armen Garcia MD 02/16/2020 01:44 P
[2020-02-16] MEDS ORDERED: KEFL500C17 PO (14:55)
[2020-02-16 15:06] VITALS: BP 165/75
== END 2020-02-16 15:10 | disposition home or self-care (01) ==
LOC: M ED 12:08
DX: N39.0 Urinary tract infection, site not specified (principal); N28.1 Cyst of kidney, acquired; I10 Essential (primary) hypertension; E78.5 Hyperlipidemia, unspecified; F43.10 Post-traumatic stress disorder, unspecified; K21.9 Gastro-esophageal reflux disease without esophagitis; Z79.01 Long term (current) use of anticoagulants; Z79.82 Long term (current) use of aspirin; Z88.6 Allergy status to analgesic agent; Z95.0 Presence of cardiac pacemaker
CPT/HCPCS: 74177; 80047; 80076; 81001; 83605; 83690; 85025; 87088; 87186; 96360; 99284; Q9967

== ENCOUNTER → 2020-05-30 | Outpatient (REF) | payer MEDICARE ==
[~2020-05-30] MED LIST changes: -AMIO200T PO; +AMIO200T3 PO; +ASPI-546 PO; -ASPI1TAB15 PO; +BENA25CA4 PO; +CYAN500T10 PO; -CYAN500T9 PO; +ENTR1TAB; +KEFL500C17 PO; +PANT40TA29 PO; -PANT40TA3 PO; +POTA1TAB23
[2020-05-30 16:56] LABS: APPEARANCE, URINE CLEAR (CLEAR); BACTERIA, URINE AUTO NEGATIVE (NEGATIVE); BILIRUBIN, URINE AUTO NEGATIVE (NEGATIVE); BLOOD, URINE BLOOD NEGATIVE (NEGATIVE); COLOR, URINE YELLOW (YELLOW); GLUCOSE, URINE (UA) AUTO NEGATIVE (NEGATIVE); KETONE, URINE AUTO NEGATIVE (NEGATIVE); LEUKOCYTE ESTERASE, URINE AUTO NEGATIVE (NEGATIVE); MUCUS, URINE SMALL (NEGATIVE); NITRITE, URINE AUTO NEGATIVE (NEGATIVE); PROTEIN, URINE AUTO NEGATIVE (NEGATIVE); RBC, URINE AUTO 0 /HPF (0-3); SPECIFIC GRAVITY URINE AUTO 1.011 (1.002-1.035); SQUAMOUS EPITHELIAL CELL UR AU 0 /HPF (0-6); UROBILINOGEN, URINE AUTO 0.2 mg/dL (0.0-2.0); WBC, URINE AUTO 1 /HPF (0-3)
== END ==
LOC: M SFHCADAM 09:12
PROVIDERS: ATTEND Family Medicine
DX: R30.0 Dysuria (principal)

== ENCOUNTER 2020-12-24 11:02 | Inpatient (IN) | payer MEDICARE, OTHER ==
[~2020-12-24] VITALS: Ht 190.5 cm; Wt 102.3 kg
[~2020-12-24 11:02] MED LIST changes: -CYAN500T10 PO; -ENTR1TAB; -LISI-542 PO; +LISI-898 PO; +VITA500T37 PO
[2020-12-24 11:31] LABS: BASO # 0.1 10^3/uL (0.0-0.2); BASO % 0.4 % (0.0-1.0); EOS # 0.2 10^3/uL (0.0-0.5); EOS % 1.6 % (0.0-3.0); HEMATOCRIT 43.8 % (42.0-52.0); HEMOGLOBIN 13.6 g/dl (13.5-17.5); LYMPH # 1.7 10^3/uL (1.5-5.0); LYMPH % 12.2 % (24.0-44.0); MEAN CORPUSCULAR HEMOGLOBIN 28.2 pg (27.0-33.0); MEAN CORPUSCULAR HGB CONC 31.1 g/dl (32.0-36.5); MEAN CORPUSCULAR VOLUME 90.9 fl (80.0-96.0); MONO % 7.3 % (2.0-8.0); NEUTROPHILS # 10.5 10^3/uL (1.5-8.5); NEUTROPHILS % 77.8 % (36.0-66.0); PLATELET COUNT, AUTOMATED 325 10^3/uL (150-450); RED BLOOD COUNT 4.82 10^6/uL (4.30-6.10); WHITE BLOOD COUNT 13.5 10^3/uL (4.0-10.0)
[2020-12-24] MEDS ORDERED: K-TA10TA2 PO (11:32)
[2020-12-24 12:01] LABS: ALBUMIN 3.1 GM/DL (3.2-5.2); ALT/SGPT 9 U/L (12-78); BILIRUBIN,DIRECT 0.2 MG/DL (0.0-0.2); BILIRUBIN,TOTAL 1.1 MG/DL (0.2-1.0); BLOOD UREA NITROGEN 20 MG/DL (7-18); CARBON DIOXIDE LEVEL 25 MEQ/L (21-32); CHLORIDE LEVEL 106 MEQ/L (98-107); CK-MB VALUE MASS < 1.0 NG/ML (<3.6); CPK CREATINE PHOSPHOKINASE 22 U/L (39-308); CREATININE FOR GFR 1.15 MG/DL (0.70-1.30); GLOMERULAR FILTRATION RATE > 60.0 (>35); GLUCOSE, FASTING 91 MG/DL (70-100); MB/CK RELATIVE INDEX 4.55 (< OR =4); POTASSIUM SERUM 4.4 MEQ/L (3.5-5.1); SODIUM LEVEL 139 MEQ/L (136-145); TOTAL PROTEIN 7.1 GM/DL (6.4-8.2); TROPONIN I 0.06 NG/ML (< 0.10)
[2020-12-24] MEDS ORDERED: NS 500 ML IV ONE (12:15)
[2020-12-24] MEDS ORDERED: LIDOCAINE 2% 5ML JELLY UROJET TOP ONE (12:20)
--- NOTE | 2020-12-24 12:31 | REP ---
INDICATION: DYSPNEA/COUGH. COMPARISON: 05/16/2019. TECHNIQUE: Single portable AP view of the chest was performed. FINDINGS: There is mild cardiomegaly. There is mild calcification of the thoracic aorta. Diffuse bilateral infiltrates are present. Left pacemaker. IMPRESSION: Diffuse bilateral infiltrates. <Electronically signed by Taiwo Olsen > 12/24/20 [id number]
[2020-12-24] MEDS ORDERED: AZITHROMYCIN INJ 500 MG, VIAL MATE ADAPTER 1 EACH in NS 250 ML IV ONE (13:10)
[2020-12-24] MEDS ORDERED: cefTRIAXone SOD 1 GM in D5W MINI-BAG PLUS 50 ML IV ONE (13:10)
[2020-12-24 13:17] LABS: RSV AMPLIFICATION NEGATIVE (NEGATIVE)
[2020-12-24] MEDS ORDERED: LOPE-39 PO (13:18)
[2020-12-24] MEDS ORDERED: ZOLO100T PO (13:18)
[2020-12-24] MEDS ORDERED: ATIV1TAB10 PO (13:18)
[2020-12-24] MEDS ORDERED: D31000TA2 PO (13:18)
[2020-12-24] MEDS: D5W/0.9% SODIUM CHLORIDE 1,000 ML IV SCH ×2 (14:18→21:31)
[2020-12-24] MEDS ORDERED: IPRATROPIUM 0.5MG/ALBUTEROL 2.5MG INH SOL UD 3ML (DUONEB) INH PRN (14:30)
--- NOTE | 2020-12-24 17:00 | HPEPDOC ---
[facility] Medical History & Physical Date of Admission December 24, 2020 Date of Service: December 24, 2020 Attending Physician: FLEX SINGER MD History and Physical CHIEF COMPLAINT: Weakness HISTORY OF PRESENT ILLNESS: 80 year old white M with past medical history of coronary artery disease, mixed systolic and diastolic congestive heart failure, sick sinus syndrome, status post AICD and permanent pacemaker placement who was brought to the ED by EMS per his for worsening generalized weakness and noted SOB at rest as well as a dry cough. He has advanced dementia and is a poor historian and thus all history was recorded from his . At baseline, he is wheelchair bound, has home services, is not ambulatory and transfers with help usually by two people. He was recently on home hospice but was discharged from hospice in 10/2020 and the expresses interest in being reinstated for home hospice services. During his time on hospice, most of his medications were discontinued including eliquis. We discussed GOC and the who is his HCP expressed that she did not want him to receive any CPR, intubation or shocks. He is DNR/DNI. She did confirm that she would like non invasive treatments to be pursued and have hospice consulted for eventual return home with hospice. She denied any recently noted fevers, reported nausea, vomiting, chest pain or diarrhea. She did report that he has been having some coughing with eating and drinking. In the ED, he was normotensive but tachycardic to 130s that improved with some IVF. EKG showed a paced rhythm, troponin was negative, CXR showed bilateral diffuse infiltrates, while covid-19 testing was negative with the rest of the respiratory panel. WBC was 13.5, hgb 13.6, platelets 325, na 139, K 4.4, BUN 20, Cr 1.13, LFTs wnl, d-dimer 870. UA was bland and BCx were drawn before he was given ceftriaxone/azithro for CAP coverage and admitted to medicine for CAP. PAST MEDICAL HISTORY: CAD, congestive heart failure, sick sinus syndrome status post pacemaker and AICD, hyperlipidemia, depression, BPH, lumbar radiculopathy status post laminectomy, GERD, erectile dysfunction, osteoarthritis, hypertension, asthma, history of subdural hemorrhage in 2015, advanced dementia PAST SURGICAL HISTORY: Right eye extraction, tonsillectomy and adenectomy, appendectomy, bone graft from right hip. The right humerus, ERCP with sphincterectomy. Laparoscopic cholecystectomy. She ablation, AICD pacemaker 2014 cardiac cath 2014 L3-L4 laminectomy FAMILY HISTORY: Father of heart failure at age of 74. Mother had a history of rheumatoid arthritis. One sister of brain cancer SOCIAL HISTORY: Smoking: former Smoker Alcohol: Denies Drugs: denies ROS: 10 point ROS was reviewed and pertinent findings were as noted in the HPI. PHYSICAL EXAMINATION: General: Alert, No Acute Distress, oriented to self only Eyes: Conjunctiva & lids normal, anicteric ENT: Mucous membr. moist/pink Neck: Supple, no palpable adenopathy Chest: Diminished, bibasilar crackles, has some transmitted upper airways sounds Heart: tachycardic, Normal S1, Normal S2, no noted murmurs Abdomen: Normal bowel sounds, soft, no grimacing or endorsement of pain on deep palpation, no guarding Extremities: Normal pulses, WWP Skin: Nl turgor and temperature, no noted rashes Neuro: AOx1 to self, words are clear but slow responses, moving all extremities, no noted droops or slurring Psych: AOx1 Labs and imaging: as summarized above, otherwise please see details below. Assessment 80 year old white M with past medical history of coronary artery disease, mixed systolic and diastolic congestive heart failure, sick sinus syndrome, status post AICD and permanent pacemaker placement who was brought to the ED by EMS per his for worsening generalized weakness and noted SOB at rest as well as a dry cough and now admitted for sepsis with multifocal PNA. Sepsis 2/2 multifocal PNA: Leukocytosis, tachycardia, SOB and CXR with multifocal infiltrates -Empiric ceftriaxone and doxycycline for CAP coverage -swallow evaluation given history of coughing with PO intake. For now will give nectar thick liquids that he did well on in the ED -aspiration precautions -check procalcitonin -respiratory panel was negative -s/p covid-19 vaccination approximately 1 month ago -droplet precautions -incentive spirometry -PRN duonbes for wheezing -sputum Cx -Urine strep and legionella antigens -DDimer was elevated and has been off eliquis for a few months, potentially has a clot but given desire to return to home with hospice, will hold off getting CTA and anticoagulation in line with GOC -gentle IVF History of mixed systolic and diastolic CHF: well compensated, clinically dry. -follows with Dr. Dacosta, cardiology. -on entresto, but will hold for now with ongoing sepsis - strict monitoring of I/O and daily weights. History of Paroxysmal A-fib -History of anti-coagulation with Eliquis, that was discontinued when he went on hospice. However he was discharged from hospice in 10/2020 and is requesting re-instatement of hospice services and so will hold off anticoagulation despite DDimer elevation, and will hold off getting CTA of chest w/ contrast. -telemetry -will place on metop 25Q6H PO for ongoing tachycardia. Frankly is likely dehydration and sepsis driven will therefore also give fluids and starting antibiotics as noted above. History of sick sinus syndrome -s/p PPM Hypothyroidism: -continue levothyroxine GERD -resume Pantoprazole 40 mg po daily. CAD: -continue ASA 81 daily Hyperlipemia: -statin therapy was discontinued on hospice service HTN: -antihypertensives were discontinued on hospice service DVT ppx: lovenox 40 QD, TEDs and SCDs GOC: DNR/DNI, hospice consult placed Vital Signs Vital Signs Date Time Temp Pulse Resp B/P (MAP) Pulse Ox O2 Delivery O2 Flow Rate FiO2 12/24/20 14:15 129 125/83 (97) 98 Room Air 12/24/20 12:45 20 12/24/20 11:31 96.8 Laboratory Data Labs 24H Laboratory Tests 2 12/24/20 11:18: Immature Granulocyte % (Auto) 0.7, Neutrophils (%) (Auto) 77.8H, Lymphocytes (%) (Auto) 12.2L, Monocytes (%) (Auto) 7.3, Eosinophils (%) (Auto) 1.6, Basophils (%) (Auto) 0.4, Neutrophils # (Auto) 10.5H, Lymphocytes # (Auto) 1.7, Monocytes # (Auto) 1.0H, Eosinophils # (Auto) 0.2, Basophils # (Auto) 0.1, Nucleated Red Blood Cells % (auto) 0.0, Anion Gap 8, Glomerular Filtration Rate > 60.0, Calcium Level 9.0, Total Bilirubin 1.1H, Direct Bilirubin 0.2, Aspartate Amino Transf (AST/SGOT) 6L, Alanine Aminotransferase (ALT/SGPT) 9L, Alkaline Phosphatase 81, Total Creatine Kinase 22L, Creatine Kinase MB < 1.0, Creatine Kinase MB Relative Index 4.55H, Troponin I 0.06, Total Protein 7.1, Albumin 3.1L, Albumin/Globulin Ratio 0.8 12/24/20 11:22: D-Dimer, Quantitative 870.38H 12/24/20 12:26: Urine Color YELLOW, Urine Appearance CLEAR, Urine pH 5.0, Urine Specific [place] 1.019, Urine Protein NEGATIVE, Urine Glucose (UA) NEGATIVE, Urine Ketones NEGAT JARETH, Urine Blood NEGATIVE, Urine Nitrite NEGATIVE, Urine Bilirubin NEGATIVE, Urine Urobilinogen 0.2, Urine Leukocyte Esterase NEGATIVE, Urine WBC (Auto) 1, Urine RBC (Auto) 7H, Urine Hyaline Casts (Auto) 0, Urine Bacteria (Auto) NEGATIVE, Urine Squamous Epithelial Cells 0, Urine Mucus (Auto) SMALL, Urine Sperm (Auto) 12/24/20 12:27: Coronavirus (COVID-19)(PCR) NEGATIVE, Influenza Type A (RT-PCR) NEGATIVE, Influenza Type B (RT-PCR) NEGATIVE, Respiratory Syncytial Virus (PCR) NEGATIVE CBC/BMP Laboratory Tests 12/24/20 11:18 Microbiology Microbiology 12/24/20 Blood Culture, Received Pending 12/24/20 Blood Culture, Received Pending Home Medications Scheduled Acetaminophen (Acetaminophen) 500 Mg Tablet, 500 MG PO DAILY Aspirin (Aspirin EC) 81 Mg Tab, 81 MG PO DAILY Cholecalciferol (Vitamin D3) (Vitamin D3) 1,000 Unit Tablet, 1,000 UNITS PO DAILY Cyanocobalamin (Vitamin B-12) (Vitamin B-12) 500 Mcg Tab, 1,000 MCG PO DAILY Levothyroxine Sodium (Levothyroxine Sodium) 25 Mcg Tablet, 25 MCG PO DAILY Lorazepam (Ativan) 0.5 Mg Tablet, 1 MG PO QHS Pantoprazole Sodium (Pantoprazole Sodium) 40 Mg Tab, 40 MG PO DAILY Potassium Chloride (K-Tab ER) 10 Meq Tablet.er, 10 MEQ PO BID Sacubitril/Valsartan (Entresto 24 mg-26 mg Tablet) 1 Each Tablet, 1 TAB PO QHS Sertraline Hcl (Zoloft) 100 Mg Tablet, 150 MG PO DAILY Scheduled PRN Loperamide HCl (Imodium A-D) 2 Mg Capsule, 2 MG PO DAILY PRN for DIARRHEA Allergies Coded Allergies: morphine (Verified Adverse Reaction, Severe, highly agiatated, 12/24/20) A-FIB/CHADSVASC A-FIB History Current/History of A-Fib/PAF?: Yes Current PO Anticoag Therapy: No Age/Risk Factor Scoring CHADSVASC: CHADSVASC Response (Comments) Value Age Risk Factor Age >/= 75 years old 2 Gender Risk Factor Male 0 Hx of CHF Yes 1 Hx of HTN Yes 1 Hx of Stroke/TIA/or VTE Yes 2 Hx of Diabetes No 0 Hx of Vascular Disease Yes 1 Total 7 Treatment Treatment ordered: NONE Reason Anticoagulant not given: Other Other reason anticoagulant not: recently on hospice and requesting return to home with hospice FLEX SINGER MD December 24, 2020 15:38
[2020-12-24 18:05] VITALS: BP 109/66
[2020-12-24] MEDS: ASPIRIN 81MG ENTERIC TABLET PO SCH (18:36)
[2020-12-24] MEDS: SERTRALINE HCL 50 MG TAB PO SCH (18:36)
[2020-12-24] MEDS: METOPROLOL TART 25 MG TABLET PO SCH (18:37)
[2020-12-24] MEDS: CYANOCOBALAMIN 500 MCG TAB PO SCH (18:37)
[2020-12-24] MEDS: ACETAMINOPHEN 500 MG TAB PO SCH (18:38)
[2020-12-24] MEDS: PANTOPRAZOLE 40MG TAB (PROTONIX) PO SCH (18:38)
[2020-12-24 19:50] VITALS: BP 110/78
[2020-12-24] MEDS ORDERED: ENOXAPARIN 40MG/0.4ML SYRINGE (J1650 PER 10MG) SC SCH (21:00)
[2020-12-24] MEDS: POTASSIUM CHLORIDE 10 MEQ SR TABLET PO SCH (21:29)
[2020-12-24] MEDS: LORazepam 1 MG TAB PO SCH (21:29)
[2020-12-25] MEDS: METOPROLOL TART 25 MG TABLET PO SCH ×4 (00:37→17:28)
[2020-12-25] MEDS: DOXYCYCLINE HYCLATE 100 MG in D5W MINI-BAG PLUS 100 ML IV SCH ×2 (01:18→13:09)
[2020-12-25 04:00] VITALS: BP 104/73
[2020-12-25 05:40] LABS: HEMATOCRIT 39.1 % (42.0-52.0); HEMOGLOBIN 12.6 g/dl (13.5-17.5); MEAN CORPUSCULAR HGB CONC 32.2 g/dl (32.0-36.5); MEAN CORPUSCULAR VOLUME 89.9 fl (80.0-96.0); PLATELET COUNT, AUTOMATED 312 10^3/uL (150-450); RED BLOOD COUNT 4.35 10^6/uL (4.30-6.10); WHITE BLOOD COUNT 11.8 10^3/uL (4.0-10.0)
[2020-12-25 05:56] LABS: CALCIUM LEVEL 8.3 MG/DL (8.8-10.2); CREATININE FOR GFR 1.42 MG/DL (0.70-1.30); GLOMERULAR FILTRATION RATE 50.8 (>35); POTASSIUM SERUM 4.6 MEQ/L (3.5-5.1)
[2020-12-25] MEDS ORDERED: LEVOTHYROXINE 25MCG TABLET (0.025MG) PO SCH (06:00)
[2020-12-25] MEDS: D5W/0.9% SODIUM CHLORIDE 1,000 ML IV SCH ×2 (06:03→08:08)
[2020-12-25 07:26] VITALS: BP 107/78
--- NOTE | 2020-12-25 07:37 | ECGEPIP ---
[facility] - ED Test Date: 2020-12-24 Pat Name: CHELSEA MCBRIDE Department: Room: - Gender: Male Pot Builder: NADIYA : [id number] Requested By: JILLIAN Sultana Order Number: [id number] Reading MD: Mihir Aceves Measurements Intervals [place] Rate: 130 P: AL: QRS: 11 QRSD: 106 T: 256 QT: 330 QTc: 485 Interpretive Statements Ventricular-paced rhythm SIMILAR TO 05/15/19 Electronically Signed on 12-25-2020 7:36:52 EDT by Mihir Aceves
[2020-12-25] MEDS: PANTOPRAZOLE 40MG TAB (PROTONIX) PO SCH (08:08)
[2020-12-25] MEDS: ASPIRIN 81MG ENTERIC TABLET PO SCH (08:08)
[2020-12-25] MEDS: POTASSIUM CHLORIDE 10 MEQ SR TABLET PO SCH ×2 (08:09→20:38)
[2020-12-25] MEDS: ACETAMINOPHEN 500 MG TAB PO SCH (08:09)
[2020-12-25] MEDS: CYANOCOBALAMIN 500 MCG TAB PO SCH (08:09)
[2020-12-25] MEDS: SERTRALINE HCL 50 MG TAB PO SCH (08:09)
[2020-12-25] MEDS ORDERED: SLF 3 ML SYR IV PRN (09:00)
[2020-12-25] MEDS ORDERED: VARIBAR NECTAR 40% w/v 240ML SUSP BTL As Ordered ONE (09:14)
[2020-12-25] MEDS ORDERED: VARIBAR PUDDING 40% w/v 230ML TUBE As Ordered ONE (09:14)
[2020-12-25] MEDS ORDERED: E-Z-PAQUE 96% w/w SUSP 176GM BTL As Ordered ONE (09:14)
[2020-12-25] MEDS ORDERED: BARIUM SULFATE 700 MG TABLET (E-Z-DISK) As Ordered ONE (09:15)
[2020-12-25] MEDS: SLF 3 ML SYR IV SCH ×3 (09:30→20:38)
[2020-12-25 09:56] LABS: D-DIMER QUANT 1103.26 ng/ml (<500)
[2020-12-25 12:00] VITALS: BP 136/89
[2020-12-25] MEDS ORDERED: cefTRIAXone SOD 1 GM in D5W MINI-BAG PLUS 50 ML IV SCH (12:00)
--- NOTE | 2020-12-25 14:02 | IPNPDOC ---
Text Note Date of Service The patient was seen on 12/25/20. NOTE SUBJECTIVE: -Now on 2L NC -Was retaining urine overnight, bladder scanned for 600cc this AM and had straight cath x 1. Has only made 100cc in the last 8h per bladder scan. -had modified barium swallow per speech and they recommended nectar thick liquids only with meds crushed in apple sauce. -Hospice will evaluate him tomorrow as they work on MD for face to face eval. PHYSICAL EXAMINATION: General: Alert, No Acute Distress, oriented to self only Eyes: Conjunctiva & lids normal, anicteric ENT: Mucous membr. moist/pink Neck: Supple, no palpable adenopathy Chest: Diminished, with persistent bibasilar crackles, now on 2L NC, no wheezing Heart: tachycardic, Normal S1, Normal S2, no noted murmurs Abdomen: Normoactive sounds, soft, NTND Extremities: Normal pulses, WWP Skin: Nl turgor and temperature, no noted rashes Neuro: AOx1 to self, moving all extremities Psych: AOx1 Labs: WBC 11.8 Hgb 12.6 platelets 312 na 140 K 4.6 Cr 1.42 D-dimer 1103 fibrinogen 516 ferritin 237 procalcitonin <0.05 Assessment 80 year old white M with past medical history of coronary artery disease, mixed systolic and diastolic congestive heart failure, sick sinus syndrome, status post AICD and permanent pacemaker placement who was brought to the ED by EMS per his for worsening generalized weakness and noted SOB at rest as well as a dry cough and now admitted for sepsis with suspected multifocal PNA. Sepsis 2/2 possible multifocal PNA: Leukocytosis, tachycardia, SOB and CXR with multifocal infiltrates -He remains on empiric ceftriaxone and doxycycline for CAP coverage, however with a negative procalcitonin, I am concerned that his infiltrates and PNA is not bacterial in origin and will reswab for covid as well as get a chest CT (without contrast given the uptrending Cr) -s/p barium swallow evaluation given history of coughing with PO intake and recommended for nectar thick liquids for pills crushed in apple sauce -aspiration precautions -respiratory panel was negative, rechecking covid-19 -He had his covid-19 vaccination approximately 1 month ago -droplet precautions -incentive spirometry -PRN duonbes for wheezing -f/u sputum Cx -f/u Urine strep and legionella antigens -DDimer was elevated and has been off eliquis for a few months, potentially has a clot, will do V/Q scan for r/o PE -DC IVF at this time History of mixed systolic and diastolic CHF: well compensated. -follows with Dr. Dacosta, cardiology. -on entresto, but will hold for now with recent sepsis - strict monitoring of I/O and daily weights. Low urine output with obstructive symptoms and uptrending Cr: -renal US -martinez catheter with strict I/Os -avoid nephrotoxins History of Paroxysmal A-fib -History of anti-coagulation with Eliquis, that was discontinued when he went on hospice. However he was discharged from hospice in 10/2020 and is requesting re-instatement of hospice services and so will hold off anticoagulation despite DDimer elevation. For now will get V/Q scan for investigation of potential PE. -telemetry -Metop 50Q6H PO for ongoing tachycardia. History of sick sinus syndrome -s/p PPM Hypothyroidism: -continue levothyroxine GERD -resume Pantoprazole 40 mg po daily. CAD: -continue ASA 81 daily Hyperlipemia: -statin therapy was discontinued on hospice service HTN: -antihypertensives were discontinued on hospice service DVT ppx: lovenox 40 QD, TEDs and SCDs GOC: DNR/DNI, hospice consult placed, to evaluate the patient tomorrow. For now will continue investigations and non-invasive treatments VS,Fishbone, I+O VS, Fishbone, I+O Laboratory Tests 12/25/20 05:25 Vital Signs Date Time Temp Pulse Resp B/P (MAP) Pulse Ox O2 Delivery O2 Flow Rate FiO2 12/25/20 12:00 96.8 108 20 136/89 (105) 98 Nasal Cannula 2.0 I&O- Last 24 Hours up to 6 AM 12/25/20 06:00 Intake Total 1430 ml Output Total 400 ml Balance 1030 ml FLEX SINGER MD December 25, 2020 14:02
[2020-12-25 16:00] VITALS: BP 129/87
--- NOTE | 2020-12-25 16:11 | REP ---
INDICATION: bilateral infiltrates on CXR with hypoxemia. COMPARISON: Chest 12/24/2020. TECHNIQUE: CT chest performed without the use of intravenous contrast. Sagittal and coronal reconstruction images are performed. FINDINGS: Lungs: Moderate patchy alveolar infiltrates are seen in both upper lobes. Scattered mild infiltrates are seen more inferiorly bilaterally. Mediastinum: There are a few mildly enlarged precarinal lymph nodes measuring up to 1.5 cm in short axis. Pari: No gross adenopathy. Axilla: No gross adenopathy. Pleura: There is moderate right pleural effusion and a small left pleural effusion. Heart: Mildly enlarged. Thoracic aorta: No aneurysm. Upper abdominal structures: Grossly unremarkable. Visualized osseous structures: There are degenerative changes of the spine without compression deformity. IMPRESSION: Moderate patchy alveolar infiltrates in both upper lung zones, more mild in the lower lung zones. Moderate right effusion. Small left effusion. Mild precarinal adenopathy. Mild cardiomegaly. <Electronically signed by Taiwo Olsen > 12/25/20 [id number]
--- NOTE | 2020-12-25 16:30 | REP ---
INDICATION: oliguric GALE. COMPARISON: 03/22/2008 FINDINGS: Multiple ultrasonographic images of the right kidney show the right kidney to measure 9.6 x 5.7 x 4.6 cm. . The renal cortical echotexture is diffusely increased. There is poor corticomedullary differentiation.. There are no masses. There are multiple anechoic structures seen the largest measures 1.2 x 1.9 x 1 cm. All exhibit posterior wall enhancement and increased through transmission. There is no hydronephrosis. There are no perinephric fluid collections. Multiple ultrasonographic images of the left kidney show the left kidney to measure 9.5 x 4.3 x 5.1 cm.. The renal cortical echotexture is diffusely increased. There is poor corticomedullary differentiation.. There is an anechoic structure seen measuring 2.7 x 2 x 2.5 cm. This exhibits posterior wall enhancement and increased through transmission. In the midpole region there is a 3.1 x 2.6 x 3.1 cm sized potential solid lesion. There is no hydronephrosis. There are no perinephric fluid collections. IMPRESSION: 1. There are bilateral renal cysts. Review of the latest prior CT scan of the abdomen and pelvis of 02/16/2020 indeed shows bilateral simple renal cysts. 2. There is a potential solid mass lesion arising from the left kidney. Review of that same CT scan showed no evidence of a solid renal mass. That exam was performed approximately 10 months ago and it is possible that a renal mass could have developed since that exam. Secondary to this I would recommend repeat pre and postcontrast enhanced renal CT. <Electronically signed by Jalen Bueno > 12/25/20 [id number]
[2020-12-25 17:28] VITALS: BP 122/87
[2020-12-25] MEDS ORDERED: SCOPOLAMINE 1MG TRANSDERMAL PATCH TOP PRN (18:50)
[2020-12-25] MEDS ORDERED: LORazepam 2 MG/ML VIAL IV PRN (18:50)
[2020-12-25] MEDS ORDERED: BISACODYL 10 MG SUPP PR PRN (18:50)
--- NOTE | 2020-12-25 20:24 | REP ---
INDICATION: questioning aspiration?. COMPARISON: NONE TECHNIQUE: The procedure was performed under the direct supervision of . The procedure was performed with Cristina Mathew from speech pathology present. 5 CC aliquots of thin nectar and pudding consistency barium was administered. 2 minutes of fluoroscopy time was utilized for this procedure. FINDINGS: With thin consistency barium there is aspiration. A detailed report of this examination will be provided by speech pathology. IMPRESSION: With thin consistency barium there is aspiration. A detailed report of this examination will be provided by speech pathology. <Electronically signed by Laz Tavarez > 12/25/20 [id number] <Electronically signed by Taiwo Olsen > 12/25/202019
[2020-12-25] MEDS: LORazepam 1 MG TAB PO SCH (20:38)
[2020-12-26] MEDS: METOPROLOL TART 25 MG TABLET PO SCH
--- NOTE | 2020-12-26 07:34 | DS.PDOC ---
Discharge Summary General Date of Admission December 24, 2020 at 14:28 Date of Discharge 12/26/2020 Attending Physician: FLEX SINGER MD Discharge Summary PROCEDURES PERFORMED DURING STAY: None ADMITTING DIAGNOSES: Multifocal PNA DISCHARGE DIAGNOSES: Multifocal PNA, likely viral Oliguric GALE Incidentally noted possible L renal mass CAD Chronic mixed systolic and diastolic HF Chronic AFib with RVR this admission, previously on eliquis Sick sinus syndrome status post pacemaker and AICD Hyperlipidemia Depression BPH Lumbar radiculopathy status post laminectomy GERD Erectile dysfunction Osteoarthritis Hypertension Asthma History of subdural hemorrhage in 2015, advanced dementia COMPLICATIONS/CHIEF COMPLAINT: Dehydration, Pneumonia. HISTORY OF PRESENT: 80 year old white M with past medical history of coronary artery disease, mixed systolic and diastolic congestive heart failure, sick sinus syndrome, status post AICD and permanent pacemaker placement who was brought to the ED by EMS per his for worsening generalized weakness and noted SOB at rest as well as a dry cough. He had advanced dementia and was a poor historian and thus all hist ory was recorded from his . At baseline, he was wheelchair bound, had home services, not ambulatory and transferred with help usually by two people. He was recently on home hospice but was discharged from hospice in 10/2020 and the expresses interest in being reinstated for home hospice services. During his time on hospice, most of his medications were discontinued including eliquis. We discussed GOC and the who is his HCP expressed that she did not want him to receive any CPR, intubation or shocks. He is DNR/DNI. She did confirm that at admission she desired non invasive treatments to be pursued and have hospice consulted for eventual return home with hospice. She denied any recently noted fevers, reported nausea, vomiting, chest pain or diarrhea. She did report that he has been having some coughing with eating and drinking. HOSPITAL COURSE: In the ED, he was normotensive but tachycardic to 130s that improved with some IVF. EKG baseline Afib and paced, troponin was negative, CXR showed bilateral diffuse infiltrates, while covid-19 testing was negative with the rest of the respiratory panel. WBC was 13.5, hgb 13.6, platelets 325, na 139, K 4.4, BUN 20, Cr 1.13, LFTs wnl, d-dimer 870. UA was bland and BCx were drawn before he was given ceftriaxone/azithro for CAP coverage and admitted to medicine for CAP. His antibiotics were changed to ceftriaxone/doxy for CAP coverage, and he received gentle fluids and was started on metoprolol for the persisting tachycardia. He was noted to have some coughing with PO and had an official barium swallow after which he was recommended for nectar thick liquids. Given the persistent tachyca rdia, elevated D-dimer and dyspnea at rest, I was concerned about a potential PE given that he recently had eliquis stopped when he was transitioned to hospice so I had pursued a noncon CT chest for better delineation of lung parenchyma that also showed bilateral GGOs, catherine a procalcitonin that was surprisingly normal making bacterial PNA unlikely and had planned for a V/Q scan given an ongoing oliguric GALE but also paused to discuss the GOC with his because parallel discussions were to involve hospice. 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 DISCHARGE MEDICATIONS: Please see below. ALLERGIES: Please see below. PHYSICAL EXAMINATION ON DISCHARGE: I WAS NOT PRESENT IN THE HOSPITAL AT THE TIME OF EXPIRATION LABORATORY DATA: Please see below. IMAGING: CT chest: Lungs: Moderate patchy alveolar infiltrates are seen in both upper lobes. Sca ttered mild infiltrates are seen more inferiorly bilaterally. Mediastinum: There are a few mildly enlarged precarinal lymph nodes measuring up to 1.5 cm in short axis. Pari: No gross adenopathy. Axilla: No gross adenopathy. Pleura: There is moderate right pleural effusion and a small left pleural effusion. Heart: Mildly enlarged. Thoracic aorta: No aneurysm. Upper abdominal structures: Grossly unremarkable. Visualized osseous structures: There are degenerative changes of the spine without compression deformity. IMPRESSION: Moderate patchy alveolar infiltrates in both upper lung zones, more mild in the lower lung zones. Moderate right effusion. Small left effusion. Mild precarinal adenopathy. Mild cardiomegaly. CXR: There is mild cardiomegaly. There is mild calcification of the thoracic aorta. Diffuse bilateral infiltrates are present. Left pacemaker. IMPRESSION: Diffuse bilateral infiltrates. Renal US: Multiple ultrasonographic images of the right kidney show the right kidney to measure 9.6 x 5.7 x 4.6 cm. . The renal cortical echotexture is diffusely increased. There is poor corticomedullary differentiation.. There are no masses. There are multiple anechoic structures seen the largest measures 1.2 x 1.9 x 1 cm. All exhibit posterior wall enhancement and increased through transmission. There is no hydronephrosis. There are no perinephric fluid collections. Multiple ultrasonographic images of the left kidney show the left kidney to measure 9.5 x 4.3 x 5.1 cm.. The renal cortical echotexture is diffusely increased. There is poor corticomedullary differentiation.. There is an anechoic structure seen measuring 2.7 x 2 x 2.5 cm. This exhibits posterior wall enhancement and increased through transmission. In the midpole region there is a 3.1 x 2.6 x 3.1 cm sized potential solid lesion. There is no hydronephrosis. There are no perinephric fluid collections. IMPRESSION: 1. There are bilateral renal cysts. Review of the latest prior CT scan of the abdomen and pelvis of 02/16/2020 indeed shows bilateral simple renal cysts. 2. There is a potential solid mass lesion arising from the left kidney. Review of that same CT scan showed no evidence of a solid renal mass. That exam was performed approximately 10 months ago and it is possible that a renal mass could have developed since that exam. Secondary to this I would recommend repeat pre and postcontrast enhanced renal CT. DISPOSITION: 20 . TIME SPENT ON DISCHARGE: 34 minutes. Vital Signs/I&Os Vital Signs Date Time Temp Pulse Resp B/P (MAP) Pulse Ox O2 Delivery O2 Flow Rate FiO2 12/26/20 00:00 40 Nasal Cannula 2.0 12/25/20 17:33 94 12/25/20 17:28 113 122/87 12/25/20 16:00 97.0 I&O- Last 24 Hours up to 6 AM 12/26/20 06:00 Intake Total 150 ml Output Total 725 ml Balance -575 ml Laboratory Data Labs 24H Laboratory Tests 2 12/25/20 09:18: Fibrinogen 516H, D-Dimer, Quantitative 1103.26H, Ferritin 237 Microbiology Microbiology 12/25/20 Respiratory Virus Panel (PCR) (ISABELL) - Final, Complete 12/24/20 Blood Culture - Preliminary, Resulted No growth after 24 hours . All specim... 12/24/20 Blood Culture - Preliminary, Resulted No growth after 24 hours . All specim... Discharge Medications Scheduled Acetaminophen (Acetaminophen) 500 Mg Tablet, 500 MG PO DAILY, (Reported) Aspirin (Aspirin EC) 81 Mg Tab, 81 MG PO DAILY, (Reported) Cholecalciferol (Vitamin D3) (Vitamin D3) 1,000 Unit Tablet, 1,000 UNITS PO DAILY, (Reported) Cyanocobalamin (Vitamin B-12) (Vitamin B-12) 500 Mcg Tab, 1,000 MCG PO DAILY, (Reported) Levothyroxine Sodium (Levothyroxine Sodium) 25 Mcg Tablet, 25 MCG PO DAILY, (Reported) Lorazepam (Ativan) 0.5 Mg Tablet, 1 MG PO QHS, (Reported) Pantoprazole Sodium (Pantoprazole Sodium) 40 Mg Tab, 40 MG PO DAILY, (Reported) Potassium Chloride (K-Tab ER) 10 Meq Tablet.er, 10 MEQ PO BID, (Reported) Sacubitril/Valsartan (Entresto 24 mg-26 mg Tablet) 1 Each Tablet, 1 TAB PO QHS, (Reported) Sertraline Hcl (Zoloft) 100 Mg Tablet, 150 MG PO DAILY, (Reported) Scheduled PRN Loperamide HCl (Imodium A-D) 2 Mg Capsule, 2 MG PO DAILY PRN for DIARRHEA, (Reported) Allergies Coded Allergies: morphine (Verified Adverse Reaction, Severe, highly agiatated, 12/24/20) FLEX SINGER MD December 26, 2020 07:34
[2020-12-27 14:09] LABS: BODY FLUID CULTURE Not indicated. (.); LEGIONELLA ANTIGEN URINE Negative (Negative); ORGANISM ID Not indicated. (.); SPECIMEN SOURCE Urine (.); URINE STREP PNEUMONIAE ANTIGEN Negative (Negative)
== END 2020-12-26 01:05 | disposition expired | DRG 193 ==
LOC: M ED 11:02 → EDBD 11:02 → M ED INP 14:28 → ENRESERV 17:06 → M PCU 18:01
PROVIDERS: ADMIT Internal Medicine; ATTEND Internal Medicine
DX: J12.9 Viral pneumonia, unspecified (principal); J96.01 Acute respiratory failure with hypoxia; I26.99 Other pulmonary embolism without acute cor pulmonale; N17.9 Acute kidney failure, unspecified; I50.42 Chronic combined systolic (congestive) and diastolic (congestive) heart failure; I48.0 Paroxysmal atrial fibrillation; E78.5 Hyperlipidemia, unspecified; N52.9 Male erectile dysfunction, unspecified; F03.90 Unspecified dementia, unspecified severity, without behavioral disturbance, psychotic disturbance, mood disturbance, and anxiety; I25.10 Atherosclerotic heart disease of native coronary artery without angina pectoris; N40.0 Benign prostatic hyperplasia without lower urinary tract symptoms; J45.909 Unspecified asthma, uncomplicated; Z95.0 Presence of cardiac pacemaker; F32.9 Major depressive disorder, single episode, unspecified; K21.9 Gastro-esophageal reflux disease without esophagitis; Z51.5 Encounter for palliative care; R57.0 Cardiogenic shock